=== PATIENT | female | born 1950 | race Hispanic/Latino ===

== ENCOUNTER 2022-01-27 10:43 | Inpatient (IN) | payer SELFPAY ==
[2022-01-27 11:14] LABS: Absolute Lymphocytes (CBC) 0.8 K/uL (0.7-4.9); Hematocrit 44.1 % (36.0-45.0); Lymphocytes % 6.8 % (15.3-44.8); RBC Red Blood Cell Count 4.87 M/uL (3.86-4.86)
[2022-01-27 11:27] LABS: C-Reactive Protein 13.6 mg/L (<3.00); Uric Acid 5.3 mg/dL (2.6-6.0)
[2022-01-27 11:28] LABS: Potassium 4.3 mmol/L (3.5-5.1)
[2022-01-27] MEDS ORDERED: LIDOCAINE 1% MPF 30 ML VIAL ONE (11:42)
--- NOTE | 2022-01-27 11:47 | RAD REPORT ---
EXAM DESCRIPTION: RAD - Ankle Left 3 View - 01/27/2022 11:23 am CLINICAL HISTORY: Pain;Swelling COMPARISON: None. FINDINGS: No fracture, dislocation or periosteal reaction. No joint effusion seen. No joint space na rrowing. Minimal plantar spur is present. Soft tissue swelling surrounds the ankle with plantar soft tissues also appearing slightly edematous. No air or foreign body in the soft tissues. IMPRESSION: Soft tissue swelling with no left ankle fracture.
[2022-01-27] MEDS ORDERED: MORPHINE 4 MG/ML SYR ONE (12:02)
[2022-01-27] MEDS ORDERED: ONDANSETRON 4 MG/2 ML VIAL ONE ×2 (12:02→16:42)
--- NOTE | 2022-01-27 12:20 | RAD REPORT ---
EXAM DESCRIPTION: US - Extremity Venous Uni Ltd - 01/27/2022 11:55 am CLINICAL HISTORY: Pain;Swelling COMPARISON: None. TECHNIQUE: Real-time sonographic evaluation of the left lower extremity deep venous system was perfo rmed. FINDINGS: Normal compressibility, flow augmentation, phasic flow and spontaneous flow are identified in the left lower extremity common femoral, superficial femoral, popliteal and posterior tibial vein s. No intraluminal filling defects seen. IMPRESSION: No DVT in the left lower extremity.
--- NOTE | 2022-01-27 12:20 | RAD REPORT ---
EXAM DESCRIPTION: US - Lower Extremity Artery Uni Ltd - 01/27/2022 11:55 am CLINICAL HISTORY: LLE COMPARISON: No comparisons TECHNIQUE: Doppler evaluation of the left leg arterial tree performed. Waveforms and velocity values were obtained along with visual inspection. FINDINGS: Triphasic and biphasic waveforms were seen along the length of the left lower extremity. N o occlusion or focal flow restricting lesion. No significant degree of wall atherosclerotic change se en. No suspicious velocity or waveform finding. IMPRESSION: Left lower extremity arterial examination shows no significant or suspicious finding.
[2022-01-27 13:08] LABS: Body Fluid WBC 40969 /mm^3
[2022-01-27 13:22] LABS: Appearance TURBID (CLEAR); Body Fluid Source SYNOVIAL; Color of fluid Yellow (COLORLESS)
[2022-01-27 13:42] LABS: Blood Morphology Comment NOT SEEN (NOT SEEN); Platelet Estimate ADEQ
[2022-01-27] MEDS ORDERED: NA CHLORIDE 0.9% 250 ML ONE (13:50)
[2022-01-27] MEDS ORDERED: Levofloxacin500mg IV 500 MG/100 ML BAG IV ONE (13:50)
[2022-01-27] MEDS ORDERED: VANCOMYCIN 1 GM/VIAL ONE (13:50)
--- NOTE | 2022-01-27 14:05 | EDPHYS ---
Physician Documentation [facility] Name: Martha Wan Age: 71 yrs Sex: Female : 1950 Arrival Date: 01/27/2022 Time: 10:44 Bed 6 Private MD: ED Physician Luis Fernando De La Torre HPI: 01/27 10:59 This 71 yrs old Female presents to ER via Ambulatory with complaints of Ankle rn Swelling - left. 10:59 The patient presents with pain, that is acute, swelling. The complaints affect the left rn ankle. Onset: The symptoms/episode began/occurred this morning. Context: The problem was sustained at home, resulted from an unknown cause, The patient can partially bear weight on the affected extremity. Associated signs and symptoms: Pertinent positives: swelling, Pertinent negatives: calf tenderness, fever, warmth, weakness. Modifying factors: The symptoms are alleviated by elevation of extremity, the symptoms are aggravated by weight bearing, movement. Severity of symptoms: At their worst the symptoms were moderate, in the emergency department the symptoms are unchanged. The patient has not experienced similar symptoms in the past. The patient has not recently seen a physician. Pt reports left ankle swelling, began this morning, pain woke her up from sleep, no known injury. No known hx of gout or other arthritis. No fever/chills. No knee/calf pain or tenderness. Historical: - Allergies: 10:57 PENICILLINS; ss 10:57 Possibly other antibiotics; ss 10:52 PENICILLINS; thomas 10:52 Aspirin; thomas - PMHx: 10:57 Hypertensive disorder; Angina pectoris; ss - Immunization history:: Client reports receiving the 2nd dose of the Covid vaccine, Adult Immunizations up to date. - Social history:: Smoking status: Patient/guardian denies using tobacco, the patient reports quitting approximately 16 years ago, Smoking status: Patient/guardian denies using tobacco, the patient reports quitting approximately 16 years ago. - Family history:: not pertinent. - Hospitalizations: : No recent hospitalization is reported. ROS: 10:59 Constitutional: Negative for fever, chills, and weight loss, Cardiovascular: Negative rn for chest pain, palpitations, and edema, Respiratory: Negative for shortness of breath, cough, wheezing, and pleuritic chest pain, Abdomen/GI: Negative for abdominal pain, nausea, vomiting, diarrhea, and constipation, Back: Negative for injury and pain, MS/Extremity: Neg for injury, + left ankle swelling and pain Skin: Negative for injury, rash, and discoloration, Neuro: Negative for headache, weakness, numbness, tingling, and seizure. Exam: 10:59 Constitutional: This is a well developed, well nourished patient who is awake, alert, rn and in no acute distress. Head/Face: Normocephalic, atraumatic. Cardiovascular: Regular rate and rhythm. No pulse deficits. Respiratory: No increased work of breathing, no retractions or nasal flaring. Abdomen/GI: Soft, non-tender Skin: Warm, dry, no cyanosis MS/ Extremity: Pulses equal, no cyanosis. Neurovascular intact. Equal circumference. + swelling at left ankle without warmth or erythema. + covered in ointment. Neuro: Awake and alert, GCS 15 Vital Signs: 10:55 BP 165 / 115; Pulse 89; Resp 16; Temp 97.8(TE); Pulse Ox 98% on R/A; Weight 77.11 kg; ss Height 4 ft. 11 in. (149.86 cm); 12:35 BP 132 / 97; Pulse 92; Resp 18; Pulse Ox 92% on R/A; thomas 13:37 BP 137 / 98; Pulse 101; Resp 20; Pulse Ox 91% on R/A; thomas 14:55 BP 140 / 88; Pulse 95; Resp 20; Pulse Ox 94% on R/A; jg9 10:55 Body Mass Index 34.34 (77.11 kg, 149.86 cm) Procedures: 12:17 Joint Treatment: Aspiration of left ankle using 21 g needle. Removed yellow fluid, rn Specimen sent to lab. Dressed with band aid, Patient tolerated well. of left medial ankle Anesthesia with lidocaine 1% without epi, 3 cc yellow synovial fluid removed, tolerated well, using ultrasound guidance. . MDM: 10:46 Patient medically screened. rn 13:35 ED course: Consulted with Dr. Zuniga, my concern is possible septic [place] [address] WBC with 88% neutrophils, and 4+ WBC, will come and eval patient. . 14:02 Differential diagnosis: sprain, arthritis, gout, septic arthritis. Data reviewed: vital rn signs, nurses notes, lab test result(s), radiologic studies, plain films, ultrasound, and as a result, I will admit patient. Counseling: I had a detailed discussion with the patient and/or guardian regarding: the historical points, exam findings, and any diagnostic results supporting the discharge/admit diagnosis, lab results, radiology results, the need for further work-up and treatment in the hospital. Response to treatment: the patient's symptoms have mildly improved after treatment, and as a result, I will admit patient. Admission orders: after a detailed discussion of the patient's condition and case, the admit orders are written by me. ED course: Dr. Zuniga is going to take her to OR for washout, septic arthritis, will admit to hospitalist. . 01/27 10:58 Order name: CBC with Diff; Complete Time: 14:14 rn 01/27 10:58 Order name: Basic Metabolic Panel; Complete Time: 11:31 rn 01/27 10:58 Order name: Uric Acid; Complete Time: 11:31 rn 01/27 10:58 Order name: Procalcitonin; Complete Time: 11:53 rn 01/27 10:58 Order name: C-Reactive Protein; Complete Time: 11:31 rn 01/27 10:58 Order name: ESR; Complete Time: 14:14 rn 01/27 11:18 Order name: Manual Differential; Complete Time: 14:14 EDTN 01/27 12:17 Order name: Fluid Cell Count,Body; Complete Time: 13:49 rn 01/27 12:17 Order name: Fluid Crystals; Complete Time: 12:54 rn 01/27 12:17 Order name: Body Fluid Culture; Complete Time: 12:54 rn 01/27 13:38 Order name: Blood Culture Adult (2) rn 01/27 14:19 Order name: SARS-COV-2 RT PCR (Document "Date of Onset" if Symptomatic) eb 01/27 14:20 Order name: Basic Metabolic Panel EDMS 01/27 14:20 Order name: CBC with Automated Diff EDTN 01/27 10:58 Order name: XRAY Ankle LEFT 3 view; Complete Time: 11:53 rn 01/27 10:58 Order name: Extremity Venous Uni Ltd US; Complete Time: 12:27 rn 01/27 10:58 Order name: Lower Extremity Artery Uni Ltd US; Complete Time: 12:27 rn 01/27 10:58 Order name: IV Start; Complete Time: 11:25 rn 01/27 13:49 Order name: Consult Orthopedics-Alfredo Zuniga MD (ORTHOPEDICS); Complete Time: rn 13:51 01/27 13:50 Order name: XRAY Chest (1 view) rn 01/27 14:17 Order name: CONS Physician Consult EDMS 01/27 14:20 Order name: NPO EDMS 01/27 15:16 Order name: RAD EDMS Administered Medications: 11:50 Drug: morphine 4 mg Route: IVP; Site: right antecubital; thomas 12:18 Follow up: Response: No adverse reaction thomas 11:50 Drug: Zofran (Ondansetron) 4 mg Route: IVP; Site: right antecubital; thomas 12:18 Follow up: Response: No adverse reaction thomas Disposition Summary: 01/27/22 14:05 Hospitalization Ordered Hospitalization Status: Inpatient Admission rn Provider: Ruy Mars rn Location: Telemetry/MedSurg (Inpatient) rn Condition: Stable rn Problem: new rn Symptoms: have improved rn Bed/Room Type: Standard rn Room Assignment: rn Diagnosis - Septic arthritis, left ankle rn Forms: - Medication Reconciliation Form rn - SBAR form rn Signatures: Dispatcher [employer] [facility] Luis Fernando De La Torre MD MD rn Smirch, Shelby, RN RN Natasha Campos RN RN
--- NOTE | 2022-01-27 14:05 | ER ---
Nurse's Notes [facility] Name: Martha Wan Age: 71 yrs Sex: Female : 1950 Arrival Date: 01/27/2022 Time: 10:44 Bed 6 Private MD: Diagnosis: Septic arthritis, left ankle Presentation: 01/27 10:55 Chief complaint: Patient states: L ankle swelling and pain that patient noticed when ss she woke up this morning. Denies injury. Coronavirus screen: Client denies travel out of the [place] in the last 14 days. Ebola Screen: Patient denies exposure to infectious person. Patient denies travel to an Ebola-affected area in the 21 days before illness onset. Initial Sepsis Screen: Does the patient meet any 2 criteria? No. Patient's initial sepsis screen is negative. Does the patient have a suspected source of infection? No. Patient's initial sepsis screen is negative. Risk Assessment: Do you want to hurt yourself or someone else? Patient reports no desire to harm self or others. Onset of symptoms is unknown. 10:55 Method Of Arrival: Ambulatory ss 10:55 Acuity: VERONICA 3 ss Historical: - Allergies: 10:57 PENICILLINS; ss 10:57 Possibly other antibiotics; ss 10:52 PENICILLINS; thomas 10:52 Aspirin; thomas - PMHx: 10:57 Hypertensive disorder; Angina pectoris; ss - Immunization history:: Client reports receiving the 2nd dose of the Covid vaccine, Adult Immunizations up to date. - Social history:: Smoking status: Patient/guardian denies using tobacco, the patient reports quitting approximately 16 years ago, Smoking status: Patient/guardian denies using tobacco, the patient reports quitting approximately 16 years ago. - Family history:: not pertinent. - Hospitalizations: : No recent hospitalization is reported. Screenin:00 Abuse screen: Denies threats or abuse. Denies injuries from another. Nutritional jg9 screening: No deficits noted. Tuberculosis screening: No symptoms or risk factors identified. Fall Risk None identified. Assessment: 10:51 General: Appears in no apparent distress. Behavior is calm, cooperative. Pain: thomas Complains of pain in left lateral ankle. Musculoskeletal: Swelling present in left lateral ankle Reports Pain is 7 out of 10 on a pain scale. 15:14 Reassessment: Patient taken to surgery. jg9 Vital Signs: 10:55 BP 165 / 115; Pulse 89; Resp 16; Temp 97.8(TE); Pulse Ox 98% on R/A; Weight 77.11 kg; ss Height 4 ft. 11 in. (149.86 cm); 12:35 BP 132 / 97; Pulse 92; Resp 18; Pulse Ox 92% on R/A; thomas 13:37 BP 137 / 98; Pulse 101; Resp 20; Pulse Ox 91% on R/A; thomas 14:55 BP 140 / 88; Pulse 95; Resp 20; Pulse Ox 94% on R/A; jg9 10:55 Body Mass Index 34.34 (77.11 kg, 149.86 cm) ED Course: 10:44 Patient arrived in ED. am2 10:46 Luis Fernando De La Torre MD is Attending Physician. rn 10:48 Bea Hall RN is Primary Nurse. jg9 10:57 Triage completed. ss 10:57 Arm band placed on right wrist. ss 11:25 XRAY Ankle LEFT 3 view In Process Unspecified. EDMS 11:25 Manual Differential Sent. thomas 11:25 ESR Sent. thomas 11:25 C-Reactive Protein Sent. thomas 11:25 Procalcitonin Sent. thomas 11:25 Uric Acid Sent. thomas 11:25 Basic Metabolic Panel Sent. thomas 11:56 Extremity Venous Uni Ltd US In Process Unspecified. EDMS 11:56 Lower Extremity Artery Uni Ltd US In Process Unspecified. EDMS 14:00 Patient has correct armband on for positive identification. Bed in low position. Call jg9 light in reach. Side rails up X 1. 14:03 Andre Mars MD is Hospitalizing Provider. rn 14:04 Ruy Mars MD is Hospitalizing Provider. rn 15:16 No provider procedures requiring assistance completed. jg9 15:16 Patient admitted, IV remains in place. jg9 Administered Medications: 11:50 Drug: morphine 4 mg Route: IVP; Site: right antecubital; thomas 12:18 Follow up: Response: No adverse reaction thomas 11:50 Drug: Zofran (Ondansetron) 4 mg Route: IVP; Site: right antecubital; thomas 12:18 Follow up: Response: No adverse reaction thomas Outcome: 14:05 Decision to Hospitalize by Provider. rn 15:16 Condition: stable jg9 15:20 Patient left the ED. eb Signatures: Dispatcher [employer] EDMS Luis Fernando De La Torre MD MD rn Smirch, Shelby, RN RN ss Moreno, Amanda am2 Botello, Elizabeth eb Gilmore, Jennifer, RN RN jg9 Natasha Campos RN RN thomas Corrections: (The following items were deleted from the chart) 15:17 15:16 Discharged to surgery j9 jg9
--- NOTE | 2022-01-27 14:23 | P.HP ---
Certification for Inpatient With expected LOS: <2 Midnights Patient will require the following post-hospital care: None Practitioner: I am a practitioner with admitting privileges, knowledge of patient current condition, hospital course, and medical plan of care. Services: Services provided to patient in accordance with Admission requirements found in Title 42 Section 412.3 of the Code of Federal Regulations Patient History Date of Service: 01/27/22 Reason for admission: Selling of left ankle History of Present Illness: Swollen for 2 days Dx with septic arthritis in ER patient is visiting her daughter from the [place] with acute onset of pain in the left ankle there is no history of any injury other medical issues apart from a history of heavy tobacco abuse Allergies aspirin Allergy (Verified 01/27/22 15:27) Anaphylaxis Penicillins Allergy (Verified 01/27/22 15:27) Anaphylaxis - Past Medical/Surgical History -: HTN -: CAD? - Social History Smoking Status: Former smoker Review of Systems Musculoskeletal: Other (Left ankle discomfort s/p IND) Physical Examination - Vital Signs Temperature: 97.8 F Blood Pressure: 137/98 Pulse: 101 Respirations: 20 Pulse Ox (%): 92 (ra) - Studies Laboratory Data (last 24 hrs) 01/27/22 11:05: Sodium 140, Potassium 4.3, BUN 19 H, Creatinine 0.81, Glucose 125 H, Uric Acid 5.3 01/27/22 11:05: WBC 11.4 H, Hgb 14.8, Hct 44.1, Plt Count 340 Microbiology Data (last 24 hrs): 01/27/22 12:20 Body Fluid - Left Ankle Gram Stain - Final Assessment and Plan - Problems (Diagnosis) (1) Septic arthritis of ankle Current Visit: Yes Status: Acute (2) Atrial flutter Current Visit: Yes Status: Acute Plan: Poss H?x of Cflutter. Hepariinize and consult cardiology (3) COPD (chronic obstructive pulmonary disease) Current Visit: Yes Status: Acute Plan: C SOBOE former heavy smoker - Plan Seen by Dr. Ann/p I&D start patient on IV Levaquin and vancomycin severely allergic to aspirin and penicillin resulting in anaphylactic shock White count is mildly elevated white count is mildly elevated ankle aspiration showed effusion Albuterol prn for poss COPD Discharge Plan: Home Plan to discharge in: 48 Hours - Advance Directives Does patient have a Living Will: No Does patient have a Durable POA for Healthcare: No
[2022-01-27] MEDS: Levofloxacin 750mg IV 750 MG/150 ML BAG IV SCH (15:00)
[2022-01-27] MEDS: Ringers Lactate 1,000 ML IV SCH (15:00)
[2022-01-27] MEDS ORDERED: VANCOMYCIN 2 GM in NA CHLORIDE 0.9% 500 ML IVPB ONE (15:00)
[2022-01-27] MEDS: Ringers Lactate 1,000 ML IV ONE ×2 (15:00→15:06)
--- NOTE | 2022-01-27 15:16 | RAD REPORT ---
EXAM DESCRIPTION: RAD - Chest Single View - 01/27/2022 2:52 pm CLINICAL HISTORY: DYSPNEA COMPARISON: None available TECHNIQUE: AP portable chest image was obtained 01/27/2022 2:52 pm . FINDINGS: Lung volumes are low. No mass or consolidations seen. Interstitial markings are prominent. Cardiomegaly is present with mild vascular engorgement. No measurable pleural effusion and no pneumo thorax. No acute bony abnormality seen. No acute aortic findings suspected. IMPRESSION: Mild CHF/volume overload pattern.
[2022-01-27] MEDS ORDERED: SUCCINYLCHOLINE 20 MG/ML (10 ML) IV ONE (15:32)
[2022-01-27] MEDS ORDERED: FENTANYL CITR 100 MCG/2 ML ONE ×2 (15:35→17:22)
[2022-01-27] MEDS ORDERED: propofoL 200 MG/20 ML VIAL IV ONE (15:35)
--- NOTE | 2022-01-27 16:20 | CON ---
Date of Consultation: 01/27/2022 History Of Present Illness: This is my first time seeing this patient to my knowledge. She is a 71- year-old female, who has a history of hypertension as well as perhaps some angina. I am called to se nicci sykes for significant pain related to the left ankle. Pertinent history includes that she was comple tely asymptomatic, playing with children yesterday and then woke up this morning at 7 o'clock and sta rted having some ankle pain. Then as the morning progressed, she became worse and worse where she co uld not walk in her to even move or manipulate her ankle. [facility] In the emergency department, x-rays were taken, which did not demonstrate any fractures o r dislocations and she does have significant amount of swelling of the ankle, which was aspirated by the ER physician. This aspirate reveals no crystals as well as a Gram stain of 4+ white blood cells as well as a white blood cell count of 44. Assessment: This is a 71-year-old female, now with pain in her left ankle. Obvious inciting event i s not present. This is somewhat concerning for septic arthritis with the ankle as there is no sign o f trauma and the patient's family denied trauma. She has also had rapid worsening. She has a high s edimentation rate and CRP as well. Plan: At this time, I spoke with the patient's family regarding this with recommendation for IV anti biotics, admission as well as open irrigation of the left ankle. The family member wants to speak wi th another family member and thus not made their final decision. They are told of the possibility of persistent septic arthritis, possible osteomyelitis, and other problems, which could be associated w ith untreated septic arthritis. They state they understand things as presented. We will await their gabriel GREENBERG Voice ID: [id number] Report ID: [id number]
--- NOTE | 2022-01-27 16:26 | P.BOP ---
Preoperative diagnosis: probable left ankle sepic arthritis Postoperative diagnosis: same Estimated blood loss: 10ccs Anesthesia: General Complications: None Transferred to: Recovery Room Condition: Good
[2022-01-27] MEDS ORDERED: ALBUTEROL 2.5 MG/3 ML NEB SOL ONE (16:37)
[2022-01-27] MEDS: MORPHINE 4 MG/ML SYR ONE ×2 (16:40→16:45)
[2022-01-27] MEDS ORDERED: Ringers Lactate 1,000 ML IV ONE (17:40)
--- NOTE | 2022-01-27 17:44 | OP ---
Date of Procedure: 01/27/2022 Surgeon: Alfredo Zuniga MD Preoperative Diagnosis: Left ankle probable septic arthritis. Postoperative Diagnosis: Left ankle probable septic arthritis. Procedure: Left ankle open irrigation and debridement. Estimated Blood Loss: Less than 10 cc. Complications: There were no complications. Pathology Specimen: No pathology specimen sent. Indications For Operation: Ms. Hdez is a 71-year-old female, who unfortunately about 7 this morning was awakened, she had very mild pain related to her ankle. Over the course of the morning, her ankle started swelling more and more pain became more severe until she could not walk and basically could not move her foot or ankle. She was taken to the emergency room and evaluated there with x-rays as well as a Doppler ultrasound as well as an aspiration and chemistries. The white blood cell count was found to be 11.4 with a left shift, also found to have a sed rate of only 6; however, there is a C-reactive protein of 13.6. Procalcitonin was normal. The aspiration, however, revealed yellow turbid fluid with a white blood cell count of 40,969 with the significant preponderance of neutrophils. On my physical examination of her, gentle motion of the ankle did not cause much pain, but she had morphine and had a previous aspiration. X-rays were normal. Talking with the family as well as the ER staff, she was in very significant pain when she arrived. Based on history and physical examination and laboratory findings, I believe there was a fairly good chance that she is suffering from septic arthritis of the ankle, although this is rare. This should be treated immediately and risks, benefits, and alternatives to irrigation and debridement and other indicated procedures have been discussed with the patient and her family, which we agreed to proceed. Description Of Procedure: The patient was taken to the operating room and placed in the supine position. General anesthesia was obtained by staff. Following this, a well-padded tourniquet placed on superior left thigh. Left lower extremity was then prepped and draped in the usual fashion for the procedure. Following this, an incision was made along the medial border of the medial malleolus. There was quite a bit of adipose tissue, which was carefully divided with care being taken to avoid any trauma to the saphenous vein. The anterior surface of the tibia was palpated as well as the medial malleolus at the junction between the tibia and medial malleolus. An incision was made at that corner, which proceeds down approximately 1[address] the malleolus, which allows for a flap, which was tagged with 0 Vicryl and this was further exploited. A velazquez of fluid appearing to be definitely turbid and kashif colored seen. It is thin in appearance, does not appear to be thick purulence as of yet; however, had the appearance of an infected fluid. The fluid was suctioned and the foot was brought through range of motion with more fluid coming to the incision. After this, retaction and exposure was used and 2 L were washed in and out with active motion including plantar flexion and dorsiflexion. As this occurs, this was done until the fluid runs completely clear at 2 L. After this, 2-0 nylon sutures were used to close the skin; however, the small incision in the capsule remained open. She was then placed in a very well-padded sterile dressing and a posterior splint, awakened, and taken to recovery room in good condition. There were no complications. /NANCY Voice ID: [id number] Report ID: [id number] SKY
[2022-01-27] MEDS ORDERED: ONDANSETRON 4 MG/2 ML VIAL IV PRN (17:46)
[2022-01-27] MEDS ORDERED: MORPHINE 4 MG/ML SYR IV PRN (17:46)
[2022-01-27] MEDS ORDERED: ALBUTEROL 2.5 MG/3 ML NEB SOL NEB PRN (17:49)
[2022-01-27] MEDS ORDERED: HEPARIN/D5W 25,000 UNIT/500 ML BAG IV SCH (18:00)
[2022-01-27] MEDS ORDERED: VANCOMYCIN 1 GM in NA CHLORIDE 0.9% 250 ML IVPB ONE (21:00)
[2022-01-27] MEDS: HYDROCODONE/APAP 5/325 MG TAB PO PRN (21:37)
[2022-01-27 21:45] VITALS: BMI 34.6
[2022-01-27 22:10] LABS: Protime INR 1.23
[2022-01-28] MEDS: Ringers Lactate 1,000 ML IV SCH (03:12)
[2022-01-28 03:31] LABS: Absolute Lymphocytes (CBC) 1.1 K/uL (0.7-4.9); Hematocrit 39.2 % (36.0-45.0); Lymphocytes % 11.2 % (15.3-44.8); MPV 8.1 fL (7.6-11.3); RBC Red Blood Cell Count 4.28 M/uL (3.86-4.86)
[2022-01-28 04:17] LABS: Potassium 4.1 mmol/L (3.5-5.1); Thyroid Stimulating Hormone 2.05 uIU/mL (0.360-3.740); Uric Acid 4.9 mg/dL (2.6-6.0)
[2022-01-28 04:39] LABS: T3 Free 1.88 pg/mL (2.18-3.98)
--- NOTE | 2022-01-28 09:36 | PN ---
Date of Progress Note: 01/28/2022 The patient is seen today. Her white blood cell count is now down to 9.4. Her pain is greatly decre ased with active motion of the toes. She is neurovascularly intact. Her dressings were clean, dry, and intact. The speak with assistance with her daughter. At this time, I think she can be mobilized as tolerated in the splint and most likely tomorrow, we will dress the ankle and allow her weightbea ring in a boot. Her stitches will need to be removed in 2 weeks and will probably still be monitored in the hospital for atrial fibrillation as well as clinical monitoring of her ankles. All of her qu estions as well as her family have been answered. /NANCY Voice ID: [id number] Report ID: [id number]
--- NOTE | 2022-01-28 10:34 | P.PN ---
Subjective Date of Service: 01/28/22 Chief Complaint: Selling of left ankle Subjective: Improving (Patient is improving pain has improved daughter at the bedside 3 of atrial fibrillation taking Plavix) Review of Systems 10-point ROS is otherwise unremarkable Physical Examination - Vital Signs Temperature: 96.4 F Blood Pressure: 116/58 Pulse: 77 Respirations: 18 Pulse Ox (%): 97 - Physical Exam General: Alert, In no apparent distress, Oriented x3 - Studies Laboratory Data (last 24 hrs) 01/27/22 11:05: Sodium 140, Potassium 4.3, BUN 19 H, Creatinine 0.81, Glucose 125 H, Uric Acid 5.3 01/27/22 11:05: WBC 11.4 H, Hgb 14.8, Hct 44.1, Plt Count 340 Microbiology Data (last 24 hrs): 01/27/22 12:20 Body Fluid - Left Ankle Gram Stain - Final Assessment And Plan - Current Problems (Diagnosis) (1) Septic arthritis of ankle Current Visit: Yes Status: Acute (2) Atrial flutter Current Visit: Yes Status: Acute Plan: Poss H?x of Cflutter. Hepariinize and consult cardiology (3) COPD (chronic obstructive pulmonary disease) Current Visit: Yes Status: Acute Plan: C SOBOE former heavy smoker - Plan Patient is doing better pain has improved chest pending continue with IV antibiotics ID consult patient has chronic A. fib was prescribed Plavix and cardiology consultation no change in treatment patient has normal normal thyroid function rate is controlled and is to Lovenox the echocardiogram uric acid is normal vital signs stable
[2022-01-28] MEDS: ENOXAPARIN 80 MG/0.8 ML SQ SCH ×2 (11:16→22:39)
[2022-01-28] MEDS ORDERED: VANCOMYCIN 1.5 GM in NA CHLORIDE 0.9% 500 ML IVPB SCH (15:00)
[2022-01-28] MEDS: Levofloxacin 750mg IV 750 MG/150 ML BAG IV SCH (16:11)
[2022-01-28] MEDS: HYDROCODONE/APAP 5/325 MG TAB PO PRN ×2 (18:00→22:40)
--- NOTE | 2022-01-28 19:15 | CON ---
Date of Consultation: 01/28/2022 Reason For Consultation: Atrial fibrillation/flutter. History Of Present Illness: This is a 71-year-old female, who was admitted with a septic ankle, had surgical intervention and on IV antibiotics, found to be in atrial flutter, hence I was consulted. A ccording to her, there is no history of cardiac disease in the past. She only has history of hyperte nsion. Denies having any palpitations or chest pain or shortness of breath. Past Medical History: Hypertension. Medications: Refer to reconciliation sheet for detailed list. Allergies: ASPIRIN AND PENICILLIN. Family History: No premature coronary artery disease or cancer. Social History: Does not smoke or drink. Does not use any drugs. Review of Systems: All systems reviewed and they were negative except for what mentioned in HPI. Physical Examination: Vital Signs: Reviewed. Head and Neck: Pupils are equal, reactive to light. Intact eye movements. No JVD. No cervical lym phadenopathy. Neck: Supple. Thyroid is not enlarged. Lungs: Clear to auscultation bilaterally. No rhonchi, wheezing, or crackles. Heart: Irregularly regular. Rate is acceptable in the 70s. No other extra sounds. Abdomen: Soft, nontender. Bowel sounds positive. No organomegaly. No masses or hernia. No rigidi ty or rebound. Extremities: No edema, clubbing, or cyanosis. Intact pulses. Skin: No rash noted. Neurologic: Alert, awake, oriented x3. No acute focal deficits appreciated. Investigations: Hemoglobin is 13.2 and creatinine 0.72. Assessment And Recommendations: Atrial fibrillation/flutter. I recommend to start on sotalol 80 mg twice a day. Monitor EKG daily while on it after the third dose and agree with anticoagulation. She can be placed on Eliquis 5 mg twice a day for stroke prevention and please obtain echocardiogram. Thank you for the consult. /BOBBYL Voice ID: [id number] Report ID: [id number]
[2022-01-28] MEDS: VANCOMYCIN 1.5 GM in NA CHLORIDE 0.9% 500 ML IVPB SCH (22:39)
[2022-01-29 04:51] LABS: MPV 8.2 fL (7.6-11.3)
[2022-01-29] MEDS: ENOXAPARIN 80 MG/0.8 ML SQ SCH ×2 (09:13→21:02)
--- NOTE | 2022-01-29 11:40 | ECHO ---
HEIGHT: 4 ft 11 in WEIGHT: 171 lb 4.8 oz DATE OF STUDY: 01/29/[address]: Ruy Mars MD 2-DIMENSIONAL: YES M.MODE: YES DOPPLER: YES COLOR FLOW: YES TDS: NO PORTABLE: NO DEFINITY: NO BUBBLE STUDY: NO DIAGNOSIS: ATRIAL FIBRILLATION CARDIAC HISTORY: CATHERIZATION: SURGERY: PROSTHETIC VALVE: PACEMAKER: MEASUREMENTS (cm) DIASTOLIC (NORMALS) SYSTOLIC (NORMALS) IVSd 0.9 (0.6-1.2) LA Diam 3.7 (1.9-4.0) LVEF 69% LVIDd 4.4 (3.5-5.7) LVIDs 2.7 (2.0-3.5) %FS 39% LVPWd 1.0 (0.6-1.2) Ao Diam 2.8 (2.0-3.7) 2 DIMENSIONAL ASSESSMENT: RIGHT ATRIUM: NORMAL LEFT ATRIUM: NORMAL RIGHT VENTRICLE: NORMAL LEFT VENTRICLE: NORMAL TRICUSPID VALVE: NORMAL MITRAL VALVE: NORMAL PULMONIC VALVE: NORMAL AORTIC VALVE: NORMAL PERICARDIAL EFFUSION: NONE AORTIC ROOT: NORMAL LEFT VENTRICULAR WALL MOTION: NORMAL. DOPPLER/COLOR FLOW: NORMAL. COMMENTS: ATRIAL FIBRILLATION. NORMAL LEFT VENTRICULAR SIZE AND FUNCTION. NO THROMBUS. TECHNOLOGIST: MANDY EDWARDS
--- NOTE | 2022-01-29 15:17 | P.CNS ---
Date of Consult: 01/29/22 Chief Complaint: Selling of left ankle History of Present Illness: The patient is a 71-year-old female with a past medical history of hypertension who presented to the emergency department secondary to severe sudden onset left ankle pain, erythema, and swelling. Per patient and daughter who is at bedside at the bedside, the patient woke up in the middle of the night on Saturday with pain in her ankle. When she woke up the following morning, she noticed the pain in her ankle continued to worsen and she began limping. The daughter then brought the patient to the emergency room. Joint fluid analysis showed 40,969 WBCs which were predominantly neutrophils. However Gram stain/culture has been negative. Patient was taken to the OR on 01/27 for left ankle debridement, per operative note infected looking fluid was aspirated. Patient's inflammatory markers mildly elevated. WBC slightly elevated as well, procalcitonin negative. Patient currently denies nausea/vomiting/diarrhea/shortness breath/chest pain. Allergies aspirin Allergy (Verified 01/27/22 15:27) Anaphylaxis Penicillins Allergy (Verified 01/27/22 15:27) Anaphylaxis Home Medications: Amiodarone HCl [Cordarone Tab] 200 mg PO DAILY 01/27/22 Carvedilol [Coreg] 12.5 mg PO DAILY 01/27/22 Clopidogrel Bisulfate [Plavix] 75 mg PO DAILY 01/27/22 Donepezil HCl [Aricept] 10 mg PO BEDTIME 01/27/22 Irbesartan/Hydrochlorothiazide [Avalide 300-12.5 mg Tablet] 1 each PO DAILY 01/27/22 - Past Medical/Surgical History Diabetic: No -: HTN -: CAD? - Social History Alcohol use: No CD- Drugs: No Caffeine use: No Place of Residence: Home Review of Systems 10-point ROS is otherwise unremarkable Physical Examination Temp Pulse Resp BP Pulse Ox 97 F 96 H 17 133/65 93 01/29/22 12:00 01/29/22 12:00 01/29/22 12:00 01/29/22 12:00 01/29/22 12:00 General: Alert, In no apparent distress HEENT: Atraumatic Neck: Supple Respiratory: Clear to auscultation bilaterally Cardiovascular: Irregular heart rate/rhythm Gastrointestinal: Normal bowel sounds, Soft and benign Integumentary: Other (Left ankle wrapped in postop dressing/Lei wrap) Conclusions/Impression: Antibiotics: Vancomycin: urrent Septic arthritis Joint fluid analysis had 40,969 WBCs, predominantly neutrophils, as such have high clinical suspicion for septic arthritis. Gram stain/culture negative Patient was taken to the OR on 01/27 for debridement of ankle, per operative report infected fluid was drained Recommend treating with 14 days of IV vancomycin followed by oral Bactrim for 7 to 14 days Atrial fibrillation Newly diagnosed, recommend continuing anticoagulation therapy Hypertension Continue current medications Medical management per primary team Plan of care discussed with Dr. Greene Thank you for consultation
[2022-01-29] MEDS ORDERED: DONEPEZIL HCL 5 MG TAB PO SCH (21:00)
[2022-01-29] MEDS: VANCOMYCIN 1.5 GM in NA CHLORIDE 0.9% 500 ML IVPB SCH (21:02)
[2022-01-30 04:32] LABS: MPV 7.9 fL (7.6-11.3)
[2022-01-30 05:17] VITALS: O2SAT 97
[2022-01-30] MEDS: ENOXAPARIN 80 MG/0.8 ML SQ SCH (08:51)
[2022-01-30] MEDS ORDERED: AMIODARONE HCL 200 MG TAB PO SCH (09:00)
[2022-01-30] MEDS ORDERED: HYDROCHLOROTHIAZIDE PO SCH (09:00)
[2022-01-30] MEDS ORDERED: IRBESARTAN PO SCH (09:00)
[2022-01-30] MEDS ORDERED: CLOPIDOGREL 75 MG TABLET PO SCH (09:00)
[2022-01-30] MEDS ORDERED: VALSARTAN 160 MG TAB PO SCH (11:00)
[2022-01-30] MEDS ORDERED: hydroCHLOROthiazide 12.5 MG CAP PO SCH (11:00)
--- NOTE | 2022-01-30 11:18 | P.PN ---
Subjective Date of Service: 01/30/22 Chief Complaint: Selling of left ankle Patient seen and examined at bedside, denies any acute complaints/pain Review of Systems 10-point ROS is otherwise unremarkable Physical Examination - Vital Signs Temperature: 97.7 F Blood Pressure: 145/78 Pulse: 89 Respirations: 16 Pulse Ox (%): 95 - Studies Active Medications Hydrocodone Bitart/Acetaminophen (Hydrocodone/Apap 5/325 Mg Tab) 1 tab PO Q4HP PRN PRN Reason: Pain scale 5-7 (Moderate) Last Admin: 01/28/22 22:40 Dose: 1 tab Documented by: Albuterol Sulfate (Albuterol 2.5 Mg/3 Ml Neb Negrita) 2.5 mg NEB [id number] PRN PRN Reason: sob Amiodarone HCl (Amiodarone Hcl 200 Mg Tab) 200 mg PO DAILY [facility] Last Admin: 01/29/22 21:36 Dose: 200 mg Documented by: Carvedilol (Carvedilol 12.5 Mg Tab) 12.5 mg PO Q24H [facility] Last Admin: 01/29/22 21:36 Dose: 12.5 mg Documented by: Donepezil HCl (Donepezil Hcl 5 Mg Tab) 10 mg PO BEDTIME [facility] Last Admin: 01/29/22 21:36 Dose: 10 mg Documented by: Enoxaparin Sodium (Enoxaparin 80 Mg/0.8 Ml) 80 mg SQ Q12HR [facility] Last Admin: 01/30/22 08:51 Dose: 80 mg Documented by: Hydrochlorothiazide (Hydrochlorothiazide 12.5 Mg Cap) 12.5 mg PO DAILY [facility] Last Admin: 01/30/22 11:00 Dose: Not Given Documented by: Vancomycin HCl 1.5 gm/ Sodium (Chloride) 500 mls @ 250 mls/hr IVPB Q24H [facility] Last Admin: 01/29/22 21:02 Dose: 500 mls Documented by: Morphine Sulfate (Morphine 4 Mg/Ml Syr) 2 mg IV Q4HP PRN PRN Reason: Pain scale 5-7 (Moderate) Ondansetron HCl (Ondansetron 4 Mg/2 Ml Vial) 4 mg IV Q4HP PRN PRN Reason: NAUSEA / VOMITING Sodium Chloride (Flush Normal Saline 10 Ml) 10 ml IV BID [facility] Last Admin: 01/30/22 08:52 Dose: 10 ml Documented by: Valsartan (Valsartan 160 Mg Tab) 160 mg PO DAILY [facility] Microbiology Data (last 24 hrs): 01/27/22 12:20 Body Fluid - Left Ankle Gram Stain - Final 01/27/22 12:20 Body Fluid - Left Ankle Culture & Sensitivity - Final No growth. Assessment And Plan - Plan Physical Exam: General: Alert, In no apparent distress HEENT: Atraumatic Neck: Supple Respiratory: Clear to auscultation bilaterally Cardiovascular: Irregular heart rate/rhythm Gastrointestinal: Normal bowel sounds, Soft and benign Integumentary: Other (Left ankle wrapped in postop dressing/Lei wrap) Conclusions/Impression: Antibiotics: Vancomycin: urrent left ankle septic arthritis Joint fluid analysis had 40,969 WBCs, predominantly neutrophils, as such have high clinical suspicion for septic arthritis. Gram stain/culture negative Patient was taken to the OR on 01/27 for debridement of ankle, per operative report infected fluid was drained Recommend treating with 14 days of IV vancomycin followed by oral Bactrim for 7 to 14 days Atrial fibrillation Newly diagnosed, recommend continuing anticoagulation therapy Hypertension Continue current medications Medical management per primary team Plan of care discussed with Dr. Greene Thank you for consultation
[2022-01-30] MEDS ORDERED: carvediloL 12.5 MG TAB PO SCH (13:00)
[2022-01-30 14:25] VITALS: BP 143/80; TEMP 97.4
--- NOTE | 2022-01-30 15:25 | RAD REPORT ---
EXAM DESCRIPTION: RAD - Chest Single View - 01/30/2022 2:27 am CLINICAL HISTORY: PICC placement TECHNIQUE: Frontal view of the chest. COMPARISON: Correlation is made with report only from study dated 01/27/2022 FINDINGS: Lungs: Coarsened interstitial markings. Patchy bibasilar opacities. Pleural space: Unremarkable. No pneumothorax. Heart: The cardiac silhouette is enlarged, in part accentuated by portable technique. Mediastinum: Unremarkable. Bones/joints: Unremarkable. Vasculature: Thoracic aortic atherosclerosis. Tubes, lines and devices: Right upper extremity PICC tip projects over the proximal to mid superior vena cava. IMPRESSION: 1. Right upper extremity PICC tip projects over the proximal to mid superior vena cava . 2. Patchy bibasilar opacities (atelectasis and/or infiltrate). Electronically signed by: Alex Singh MD 01/30/2022 3:03 AM CDT Due to temporary technical issues with the PACS/Fluency reporting system, reports are being signed by the in house radiologists without review as a courtesy to insure prompt reporting. The interpreting radiologist is fully responsible for the content of the report.
[2022-01-31] MEDS ORDERED: VALSARTAN 160 MG TAB PO SCH (09:00)
--- NOTE | 2022-02-02 11:21 | PN ---
Date of Progress Note: 01/29/2022 The patient had come in with atrial fibrillation, was seen by Dr. Bauer, placed on sotalol, remained in atrial fibrillation. Echocardiogram was normal with a normal ejection fraction, no left atrial t hrombus. I think nevertheless she needs to be anticoagulated and we will see her in the office as an outpatient. Continue her present regimen otherwise. The patient is being followed by Lucina Dinh. She is on amiodarone now, Coreg, hydrochlorothiazide, and valsartan. I agree with her presen t regimen. She will need IV vancomycin for 14 days. Her initial diagnosis was septic arthritis. Ag azucena, she needs to be on amiodarone, needs to be anticoagulated and we will see her in the office soon . EMELYN/NANCY Voice ID: [id number] Report ID: [id number]
== END 2022-01-30 16:39 | disposition home or self-care (01) | DRG 549 ==
LOC: ER 10:43 → ERHOLD 14:14 → 2ND 16:50
PROVIDERS: ADMIT Internal Medicine Sleep Medicine; ATTEND Hospitalist
PROC: 0SJG3ZZ Inspection of Left Ankle Joint, Percutaneous Approach (ICD-10-PCS; 2022-01-27)
PROC: 3E1U38Z Irrigation of Joints using Irrigating Substance, Percutaneous Approach (ICD-10-PCS; principal; 2022-01-30)
PROC: 02HV33Z Insertion of Infusion Device into Superior Vena Cava, Percutaneous Approach (ICD-10-PCS; 2022-01-30)
DX: M00.9 Pyogenic arthritis, unspecified (principal); I48.92 Unspecified atrial flutter; I48.20 Chronic atrial fibrillation, unspecified; J44.9 Chronic obstructive pulmonary disease, unspecified; I10 Essential (primary) hypertension; Z88.6 Allergy status to analgesic agent; Z88.1 Allergy status to other antibiotic agents; Z79.02 Long term (current) use of antithrombotics/antiplatelets; Z79.899 Other long term (current) drug therapy; Z88.0 Allergy status to penicillin; Z87.891 Personal history of nicotine dependence; Z20.822 Contact with and (suspected) exposure to COVID-19
CPT/HCPCS: 36415; 36569; 71045; 80048; 80202; 82274; 82947; 84145; 84439; 84443; 84481; 84550; 84560; 85025; 85049; 85610; 85652; 85730; 86140; 87040; 87070; 87205; 89050; 89060; 93005; 93306; 93926; 93971; 96374; 96375; 99283; J0330; J1644; J2405; J2704; J3010; J3370; J7040; J7050; J7120; U0003

== ENCOUNTER 2022-04-13 11:48 | Inpatient (IN) | payer SELFPAY ==
[2022-04-13] MEDS ORDERED: NA CHLORIDE 0.9% 1,000 ML ONE (13:01)
--- NOTE | 2022-04-13 13:12 | RAD REPORT ---
EXAM DESCRIPTION: RAD - Chest Single View - 04/13/2022 1:05 pm CLINICAL HISTORY: FEVER COMPARISON: Chest Single View dated 01/30/2022; Chest Single View dated 01/27/2022hest Single View date d 01/30/2022; Chest Single View dated 01/27/2022 FINDINGS: Lines: The right-sided PICC has been removed. Lungs: Ill-defined opacities in the lower lungs bilaterally demonstrating mild improvement since 02/2022. Pleural: No significant pleural effusions or pneumothorax. Cardiac: Cardiomegaly Bones: No acute fractures. Other: IMPRESSION: Improved though not completely resolved airspace opacities in the lung bases that could represent pneumonia. Suspect vascular congestion as well.
[2022-04-13 13:21] LABS: Absolute Lymphocytes (CBC) 0.7 K/uL (0.7-4.9); Hematocrit 40.9 % (36.0-45.0); Lymphocytes % 3.2 % (15.3-44.8); MCV 87.5 fL (80-100); MPV 8.2 fL (7.6-11.3); RBC Red Blood Cell Count 4.67 M/uL (3.86-4.86)
[2022-04-13 13:32] LABS: ALT/SGPT 63 U/L (12-78); AST/SGOT 77 U/L (15-37); Alkaline Phosphatase 104 U/L (45-117); BUN Blood Urea Nitrogen 14 mg/dL (7-18); Bicarbonate 29 mmol/L (21-32); Bilirubin Direct 0.6 mg/dL (0-0.2); Creatine Phosphokinase 42 U/L (26-192); Glomerular Filtration Rate 67 ml/min (=/>90); Glucose Level 176 mg/dL (74-106); Lipase 64 U/L (73-393); Magnesium 1.5 mg/dL (1.8-2.4); Potassium 3.2 mmol/L (3.5-5.1); Protein, Total 7.4 g/dL (6.4-8.2); Sodium Level 132 mmol/L (136-145)
[2022-04-13 13:59] LABS: CKMB Creatine Kinase MB < 1.0 ng/mL (1.0-3.6)
[2022-04-13 14:01] LABS: Urine Blood Negative (Negative); Urine Glucose Negative (Negative); Urine Protein 2+ (Negative); Urine Specific Gravity >=1.030 (1.005-1.030); Urine pH 5.5 (5.0-7.0)
[2022-04-13 14:25] LABS: Urine RBC <5 /HPF (NONE SEEN)
[2022-04-13 14:26] LABS: Urine Bacteria <20 /HPF (<20); Urine Mucus 1+ /HPF (NONE SEEN)
[2022-04-13 14:52] LABS: Protime INR 1.35
[2022-04-13] MEDS ORDERED: POTASSIUM CL SA 10 MEQ TAB PO ONE ×2 (15:17→15:20)
[2022-04-13] MEDS ORDERED: Magnesium Sulfate 2gm IVPB 2 G/50 ML BAG IV ONE (15:18)
--- NOTE | 2022-04-13 15:41 | EDPHYS ---
Physician Documentation [facility] Name: Martha Wan Age: 71 yrs Sex: Female : 1950 Arrival Date: 04/13/2022 Time: 11:50 Bed 7 Private MD: ED Physician Olayinka Stark HPI: 04/13 15:02 This 71 yrs old Female presents to ER via Wheelchair with complaints of kb Weakness, Fever, High Blood Pressure. 15:38 The patient presents with generalized weakness. Onset: The symptoms/episode kb began/occurred 3 day(s) ago. Context: occurred at home, just prior to the episode the patient experienced no apparent symptoms. Modifying factors: The symptoms are alleviated by nothing, the symptoms are aggravated by nothing. Associated signs and symptoms: The patient has no apparent associated signs or symptoms. Severity of symptoms: At their worst the symptoms were moderate in the emergency department the symptoms are unchanged. Patient's baseline: Neuro: alert and fully oriented, Motor: no deficits, Ambulation: walks without assistance, Speech: normal. The patient has not experienced similar symptoms in the past. The patient has not recently seen a physician. Daughter reports pt has had weakness, fever, chills and decreased appetite for about 3 days. Today pt's bp was elevated 200/110 so she told her to come get checked out at the er. Denies cough, congestion, n/v/d. . Historical: - Allergies: 12:09 Aspirin; aa5 12:09 PENICILLINS; aa5 - Home Meds: 14:08 Plavix Oral 75 mg daily [Active]; Aricept Oral 10 mg nightly [Active]; Tessalon Perles bh1 Oral 100 mg every 6 hours [Active]; Coreg Oral 12.5 mg twice a day [Active]; Hydrochlorothiazide Oral 12.5 mg daily [Active]; IRBESARTAN 300 mg daily [Active]; Cordarone Oral 200 mg daily [Active]; - PMHx: 12:09 angina pectoris; Hypertensive disorder; aa5 - PSHx: 12:10 section; left leg; aa5 - Immunization history:: Adult Immunizations unknown. - Social history:: Smoking status: Patient denies any tobacco usage or history of. ROS: 15:34 Abdomen/GI: Negative for abdominal pain, nausea, vomiting, diarrhea, and constipation. kb 15:34 Constitutional: Positive for chills, fatigue, fever, malaise, poor PO intake. 15:34 Neuro: Positive for weakness. 15:34 All other systems are negative. Exam: 15:38 Constitutional: This is a well developed, well nourished patient who is awake, alert, kb and in no acute distress. Head/Face: Normocephalic, atraumatic. ENT: Moist Mucous membranes Cardiovascular: Regular rate and rhythm with a normal S1 and S2. No gallops, murmurs, or rubs. No pulse deficits. Respiratory: Respirations even and unlabored. No increased work of breathing. Talking in full sentences Abdomen/GI: Soft, non-tender. No distention Skin: Warm, dry with normal turgor. Normal color. MS/ Extremity: Pulses equal, no cyanosis. Neurovascular intact. Full, normal range of motion. Neuro: Awake and alert, GCS 15, oriented to person, place, time, and situation. Moves all extremities. Normal gait. Psych: Awake, alert, with orientation to person, place and time. Behavior, mood, and affect are within normal limits. Vital Signs: 12:06 BP 91 / 60; Pulse 67; Resp 24 S; Temp 99.0(O); Pulse Ox 92% on R/A; Weight 77.11 kg aa5 (R); Height 4 ft. 11 in. (149.86 cm) (R); 12:31 Pulse 77; Resp 26; Pulse Ox 88% on R/A; ld1 12:37 BP 95 / 50; Pulse 79; Resp 24; Pulse Ox 94% on 5 lpm NC; ld1 14:08 BP 94 / 46; Pulse 77; Resp 18; Pulse Ox 98% on 4 lpm NC; ld1 15:21 BP 100 / 61; Pulse 83; Resp 18; Pulse Ox 95% on 4 lpm NC; ld1 16:34 BP 114 / 66; Pulse 97; Resp 18; Pulse Ox 95% on 4 lpm NC; ld1 16:49 BP 115 / 65; Pulse 87; Resp 18; Pulse Ox 96% on 4 lpm NC; ld1 17:32 BP 126 / 93; Pulse 80; Resp 24; Temp 98.3; Pulse Ox 98% on 1 lpm NC; bh1 12:06 Body Mass Index 34.34 (77.11 kg, 149.86 cm) aa5 MDM: 12:47 Patient medically screened. kb 15:34 Data reviewed: vital signs, nurses notes. Data interpreted: Pulse oximetry: on room air kb is 95 %. Interpretation: normal. Counseling: I had a detailed discussion with the patient and/or guardian regarding: the historical points, exam findings, and any diagnostic results supporting the discharge/admit diagnosis, lab results, radiology results, the need for further work-up and treatment in the hospital. Physician consultation: Rogelio Waters was contacted at 15:34, regarding admission, to the telemetry unit. patient's condition, and will see patient in ED. 04/13 12:15 Order name: Basic Metabolic Panel; Complete Time: 14:02 iw 04/13 12:15 Order name: CBC with Diff; Complete Time: 17:04 iw 04/13 12:15 Order name: CPK; Complete Time: 14:02 iw 04/13 12:15 Order name: Ckmb; Complete Time: 14:02 iw 04/13 12:15 Order name: Hepatic Function; Complete Time: 14:02 iw 04/13 12:15 Order name: Lipase; Complete Time: 14:02 iw 04/13 12:15 Order name: Magnesium; Complete Time: 14:02 iw 04/13 12:15 Order name: Protime (+inr); Complete Time: 14:53 iw 04/13 12:15 Order name: Ptt, Activated; Complete Time: 14:53 iw 04/13 12:42 Order name: Glucose, Ancillary Testing; Complete Time: 12:52 EDMS 04/13 12:53 Order name: Blood Culture Adult (2) kb 04/13 12:53 Order name: Lactate; Complete Time: 13:49 kb 04/13 13:01 Order name: Flu; Complete Time: 15:40 dh3 04/13 13:01 Order name: COVID-19 SARS RT PCR (Document "Date of Onset" if Symptomatic); Complete dh3 Time: 14:53 04/13 12:15 Order name: EKG; Complete Time: 12:16 iw 04/13 12:15 Order name: Cardiac monitoring; Complete Time: 12:38 iw 04/13 12:15 Order name: EKG - Nurse/Tech; Complete Time: 12:38 iw 04/13 12:15 Order name: IV Saline Lock; Complete Time: 12:54 iw 04/13 12:15 Order name: Labs collected and sent; Complete Time: 12:54 iw 04/13 12:15 Order name: O2 Per Protocol; Complete Time: 12:38 iw 04/13 12:53 Order name: Chest Single View XRAY; Complete Time: 13:14 kb 04/13 13:29 Order name: Manual Differential; Complete Time: 17:04 EDMS 04/13 14:01 Order name: Urine Dipstick-Ancillary; Complete Time: 14:02 EDMS 04/13 14:03 Order name: Urine Microscopic Only; Complete Time: 14:30 kb 04/13 14:29 Order name: Urine Culture EDSD 04/13 12:15 Order name: O2 Sat Monitoring; Complete Time: 12:38 iw 04/13 12:15 Order name: Urine Dipstick-Ancillary (obtain specimen); Complete Time: 12:54 iw Administered Medications: 12:55 Drug: NS 0.9% 1000 ml Route: IV; Rate: 1000 ml; Site: right forearm; 1 14:00 Follow up: IV Status: Completed infusion; IV Intake: 1000ml bh1 15:22 Drug: Magnesium Sulfate 2 grams Route: IVPB; Infused Over: 2 hrs; Site: right forearm; 1 16:02 Follow up: IV Status: Completed infusion; IV Intake: 50ml bh1 15:23 Drug: Potassium Chloride 40 mEq Route: PO; bh1 15:23 Follow up: Response: No adverse reaction bh1 16:02 Follow up: Response: No adverse reaction 1 16:01 Drug: vancoMYCIN 1 grams Route: IVPB; Infused Over: 2 hrs; Site: right forearm; bh1 17:32 Follow up: BP 126 / 93; Pulse 80 bpm; Resp 24 bpm; Temp 98.3; Pulse Ox 98% 1 lpm Nasal bh1 Cannula 17:33 Follow up: IV Status: Completed infusion; IV Intake: 250ml bh1 16:11 Drug: LevaQUIN (levofloxacin) 500 mg Volume: 100 ml; Route: IVPB; Infused Over: 60 bh1 mins; Site: right forearm; 17:10 Follow up: IV Status: Completed infusion; IV Intake: 150ml bh1 Disposition: 04/14 08:09 Co-signature as Attending Physician, Olayinka Stark MD I agree with the assessment ma2 and plan of care. Disposition Summary: 04/13/22 15:40 Hospitalization Ordered Hospitalization Status: Inpatient Admission kb Provider: Rogelio Waters Location: Telemetry/MedSurg (Inpatient) kb Condition: Stable kb Problem: new kb Symptoms: are unchanged kb Bed/Room Type: Standard kb Room Assignment: 215(04/13/22 17:17) dw Diagnosis - Elevated white blood cell count kb - Pneumonia, unspecified organism kb - UTI/ Urinary tract infection, site not specified kb Forms: - Medication Reconciliation Form kb - SBAR form kb Signatures: Dispatcher [employer] EDMS Denita Spears, BAKING FACTORY WORKER-C BAKING FACTORY WORKER-Ckb Isabell Verma, RN RN Gayle Carbajal, RN RN iw Mary Bledsoe RN RN aa5 Olayinka Stark MD MD ma2 Mana Villanueva RN RN bh1 Corrections: (The following items were deleted from the chart) 04/13 15:40 15:38 Daughter reports pt has had weakness, fever, chills and decreased appetite for kb about 3 days. Today pt's bp was elevated 200/110 so she told her to come get checked out at the er. kb 17:17 15:40 kb dw
--- NOTE | 2022-04-13 15:41 | ER ---
Nurse's Notes [facility] Name: Martha Wan Age: 71 yrs Sex: Female : 1950 Arrival Date: 04/13/2022 Time: 11:50 Bed 7 Private MD: Diagnosis: Elevated white blood cell count;Pneumonia, unspecified organism;UTI/ Urinary tract infection, site not specified Presentation: 04/13 12:06 Chief complaint: Patient states: generalized weakness that began Saturday. Pt states "I aa5 can't keep my eyes open because I am dizzy". Pt also reports she has not eaten due to decreased appetite. Pt denies pain. Coronavirus screen: fatigue. Ebola Screen: Patient denies travel to an Ebola-affected area in the 21 days before illness onset. Onset of symptoms was March 2022. 12:06 Method Of Arrival: Wheelchair aa5 12:06 Acuity: VERONICA 2 aa5 12:06 Initial Sepsis Screen: Does the patient meet any 2 criteria? RR > 20 per min. Does the aa5 patient have a suspected source of infection? No. Patient's initial sepsis screen is negative. Risk Assessment: Do you want to hurt yourself or someone else? Patient reports no desire to harm self or others. Triage Assessment: 12:10 General: Appears uncomfortable, Behavior is cooperative. Pain: Denies pain. Neuro: aa5 Level of Consciousness is awake, alert, obeys commands, Oriented to person, place, time, situation. Respiratory: Airway is patent Respiratory effort is even, unlabored, Respiratory pattern is tachypnea Denies cough, shortness of breath. Derm: Skin is dry, Skin is pale, Skin temperature is warm. Historical: - Allergies: 12:09 Aspirin; aa5 12:09 PENICILLINS; aa5 - Home Meds: 14:08 Plavix Oral 75 mg daily [Active]; Aricept Oral 10 mg nightly [Active]; Tessalon Perles bh1 Oral 100 mg every 6 hours [Active]; Coreg Oral 12.5 mg twice a day [Active]; Hydrochlorothiazide Oral 12.5 mg daily [Active]; IRBESARTAN 300 mg daily [Active]; Cordarone Oral 200 mg daily [Active]; - PMHx: 12:09 angina pectoris; Hypertensive disorder; aa5 - PSHx: 12:10 section; left leg; aa5 - Immunization history:: Adult Immunizations unknown. - Social history:: Smoking status: Patient denies any tobacco usage or history of. Screenin:30 Abuse screen: Denies threats or abuse. Nutritional screening: No deficits noted. 1 Tuberculosis screening: No symptoms or risk factors identified. Fall Risk None identified. Assessment: 13:46 Reassessment: Patient appears in no apparent distress at this time. Patient and/or ld1 family updated on plan of care and expected duration. Pain level reassessed. Pt talking with family at bedside. Vital Signs: 12:06 BP 91 / 60; Pulse 67; Resp 24 S; Temp 99.0(O); Pulse Ox 92% on R/A; Weight 77.11 kg aa5 (R); Height 4 ft. 11 in. (149.86 cm) (R); 12:31 Pulse 77; Resp 26; Pulse Ox 88% on R/A; ld1 12:37 BP 95 / 50; Pulse 79; Resp 24; Pulse Ox 94% on 5 lpm NC; ld1 14:08 BP 94 / 46; Pulse 77; Resp 18; Pulse Ox 98% on 4 lpm NC; ld1 15:21 BP 100 / 61; Pulse 83; Resp 18; Pulse Ox 95% on 4 lpm NC; ld1 16:34 BP 114 / 66; Pulse 97; Resp 18; Pulse Ox 95% on 4 lpm NC; ld1 16:49 BP 115 / 65; Pulse 87; Resp 18; Pulse Ox 96% on 4 lpm NC; ld1 17:32 BP 126 / 93; Pulse 80; Resp 24; Temp 98.3; Pulse Ox 98% on 1 lpm NC; bh1 12:06 Body Mass Index 34.34 (77.11 kg, 149.86 cm) aa5 ED Course: 11:50 Patient arrived in ED. rg4 12:06 Arm band placed on. aa5 12:09 Triage completed. aa5 12:26 Mana Villanueva, RN is Primary Nurse. 1 12:38 Placed in gown. Bed in low position. Call light in reach. Side rails up X 1. Door mb7 closed. Noise minimized. Warm blanket given. 12:47 Denita Spears FNP-C is PHCP. kb 12:47 Olayinka Stark MD is Attending Physician. kb 13:01 Blood Culture Adult (2) Sent. bh1 13:01 Lactate Sent. bh1 13:01 Basic Metabolic Panel Sent. bh1 13:01 CBC with Diff Sent. bh1 13:01 CPK Sent. bh1 13:01 Ckmb Sent. bh1 13:01 Hepatic Function Sent. bh1 13:01 Lipase Sent. bh1 13:01 Magnesium Sent. bh1 13:01 Protime (+inr) Sent. bh1 13:01 Ptt, Activated Sent. bh1 13:07 Chest Single View XRAY In Process Unspecified. EDMS 14:03 Urine Microscopic Only Sent. bh1 14:03 Blood Culture Adult (2) Sent. 1 15:40 Rogelio Waters is Hospitalizing Provider. kb 17:31 Patient admitted, IV remains in place. bh1 17:31 No provider procedures requiring assistance completed. bh1 Administered Medications: 12:55 Drug: NS 0.9% 1000 ml Route: IV; Rate: 1000 ml; Site: right forearm; bh1 14:00 Follow up: IV Status: Completed infusion; IV Intake: 1000ml bh1 15:22 Drug: Magnesium Sulfate 2 grams Route: IVPB; Infused Over: 2 hrs; Site: right forearm; bh1 16:02 Follow up: IV Status: Completed infusion; IV Intake: 50ml bh1 15:23 Drug: Potassium Chloride 40 mEq Route: PO; bh1 15:23 Follow up: Response: No adverse reaction bh1 16:02 Follow up: Response: No adverse reaction bh1 16:01 Drug: vancoMYCIN 1 grams Route: IVPB; Infused Over: 2 hrs; Site: right forearm; bh1 17:32 Follow up: BP 126 / 93; Pulse 80 bpm; Resp 24 bpm; Temp 98.3; Pulse Ox 98% 1 lpm Nasal bh1 Cannula 17:33 Follow up: IV Status: Completed infusion; IV Intake: 250ml bh1 16:11 Drug: LevaQUIN (levofloxacin) 500 mg Volume: 100 ml; Route: IVPB; Infused Over: 60 bh1 mins; Site: right forearm; 17:10 Follow up: IV Status: Completed infusion; IV Intake: 150ml bh1 Medication: 17:30 VIS not applicable for this client. bh1 Intake: 14:00 IV: 1000ml; Total: 1000ml. bh1 16:02 IV: 50ml; Total: 1050ml. 1 17:10 IV: 150ml; Total: 1200ml. 1 17:33 IV: 250ml; Total: 1450ml. [facility] Outcome: 15:40 Decision to Hospitalize by Provider. kb 17:29 Admitted to Med/surg accompanied by tech, family with patient, via wheelchair, room [facility] 215, with oxygen, Report called to SHAHBAZ BA 17:29 Condition: stable 17:29 Instructed on the need for admit. 18:26 Patient left the ED. [facility] Signatures: Dispatcher [employer] EDMS Denita Spears, CASH POSTER-C CASH POSTER-Mary Doss, RN RN aa5 Claire Lind 4 Betty Maxwell, RN RN ld1 Samantha Real mb7 Mana Villanueva, RN RN 1 Corrections: (The following items were deleted from the chart) 12:11 12:06 BP 91 / 60; Pulse 67bpm; Resp 24bpm; Spontaneous; Pulse Ox 92% RA; Temp 99.0F aa5 Oral; aa5 14:09 13:46 BP 116 / 102; Pulse 78bpm; Resp 23bpm; Pulse Ox 98% 4 lpm Nasal Cannula; ld1 ld1
[2022-04-13] MEDS ORDERED: VANCOMYCIN 1 GM/VIAL ONE (16:03)
[2022-04-13] MEDS ORDERED: NA CHLORIDE 0.9% 250 ML ONE (16:03)
[2022-04-13] MEDS ORDERED: Levofloxacin500mg IV 500 MG/100 ML BAG IV ONE (16:12)
[2022-04-13 17:01] LABS: Blood Morphology Comment NOT SEEN (NOT SEEN); Platelet Estimate ADEQ
--- NOTE | 2022-04-13 17:40 | P.HP ---
Certification for Inpatient Patient admitted to: Inpatient With expected LOS: >2 Midnights Practitioner: I am a practitioner with admitting privileges, knowledge of patient current condition, hospital course, and medical plan of care. Services: Services provided to patient in accordance with Admission requirements found in Title 42 Section 412.3 of the Code of Federal Regulations Patient History Date of Service: 04/13/22 Reason for admission: Generalized weakness History of Present Illness: 71-year-old woman with a history of atrial fibrillation was brought to the emergency department due to generalized weakness. According to report patient had been sick for about 5 days with generalized weakness, loss of appetite and reduced oral intake. She had a fever at home today and her blood pressure noted to be very high with systolic in the 200s at home. Patient was brought to the emergency department where a systolic blood pressure of 90 was recorded. Temperature 99 and pulse rate of 60. It is unknown whether family members tried to treat the blood pressure before the ED presentation. There was no family member to give history during my encounter. Chest x-ray done in the emergency department showed improved but not completely resolved opacities in the lung bases. Chest x-ray compared to a previous one taken in January of this year. UA shows mild evidence of UTI. Patient is admitted for further management. Allergies Penicillins Allergy (Severe, Verified 02/02/22 11:44) Anaphylaxis aspirin Allergy (Verified 02/02/22 11:44) Anaphylaxis Home Medications: Amiodarone HCl [Cordarone*] 200 mg PO DAILY 01/27/22 Carvedilol [Coreg] 12.5 mg PO DAILY 01/27/22 Clopidogrel Bisulfate [Plavix*] 75 mg PO DAILY 01/27/22 Donepezil HCl [Aricept] 10 mg PO BEDTIME 01/27/22 Irbesartan/Hydrochlorothiazide [Avalide 300-12.5 mg Tablet] 1 each PO DAILY 01/27/22 Vancomycin/0.9 % Sod Chloride [Vanco 1.5 gm/250 ml-0.9% NaCl] 1.5 gm IV Q24H #10 plast..bag 01/30/22 - Past Medical/Surgical History Diabetic: No -: HTN -: CAD? - Family History Family History: Reviewed- Non-Contributory - Social History Alcohol use: No CD- Drugs: No Caffeine use: No Review of Systems is unable to be obtained (Due to somnolence) Physical Examination - Physical Exam General: Obese, Other (Drowsy, appear lethargic) HEENT: PERRLA, Mucous membr. moist/pink, EOMI, Sclerae nonicteric Neck: Supple, JVD not distended Respiratory: Clear to auscultation bilaterally, Normal air movement Cardiovascular: No edema, Regular rate/rhythm, Normal S1 S2 Gastrointestinal: Normal bowel sounds, Soft and benign, Non-distended, No tenderness Musculoskeletal: No swelling, No tenderness Integumentary: No rashes, No erythema, No cyanosis Neurological: Other (Somnolent, no focal motor deficits.) Lymphatics: No axilla or inguinal lymphadenopathy - Studies Laboratory Data (last 24 hrs) 04/13/22 12:52: PT 15.9 H, INR 1.35, APTT 31.7 04/13/22 12:52: WBC 20.7 H*, Hgb 13.7, Hct 40.9, Plt Count 273 04/13/22 12:52: Sodium 132 L, Potassium 3.2 L, BUN 14, Creatinine 0.93, Glucose 176 H, Magnesium 1.5 L, Total Bilirubin 2.0 H, AST 77 H, ALT 63, Alkaline Phosphatase 104, Lipase 64 L Microbiology Data (last 24 hrs): 04/13/22 13:00 Nasopharnyx Influenza Type A Antigen Screen - Final 04/13/22 13:00 Nasopharnyx Influenza Type B Antigen Screen - Final Assessment and Plan - Problems (Diagnosis) (1) Sepsis Current Visit: Yes Status: Acute (2) Pneumonia Current Visit: Yes Status: Acute (3) UTI (urinary tract infection) Current Visit: Yes Status: Acute - Plan Admitted to the medical floor. Resuscitate with IV fluid per sepsis protocol. Aggressive antibiotic therapy. Noted allergy to penicillin so will use IV Levaquin and vancomycin. Follow cultures. Neurochecks Reconcile and continue other home medications. - Advance Directives Does patient have a Living Will: No Does patient have a Durable POA for Healthcare: No
[2022-04-13] MEDS ORDERED: ACETAMINOPHEN 500 MG TAB PO PRN (20:55)
[2022-04-13] MEDS ORDERED: ONDANSETRON 4 MG/2 ML VIAL IV PRN (20:55)
[2022-04-13] MEDS: NA CHLORIDE 0.9% 1,000 ML IV SCH (21:40)
[2022-04-14 00:44] VITALS: BMI 34.3
[2022-04-14 03:58] LABS: Absolute Lymphocytes (CBC) 0.8 K/uL (0.7-4.9); Hematocrit 36.5 % (36.0-45.0); Lymphocytes % 4.8 % (15.3-44.8); MCV 88.2 fL (80-100); MPV 8.2 fL (7.6-11.3); RBC Red Blood Cell Count 4.14 M/uL (3.86-4.86)
[2022-04-14 04:25] LABS: Albumin 2.3 g/dL (3.4-5.0); Bilirubin Total 1.5 mg/dL (0.2-1.0); Magnesium 1.9 mg/dL (1.8-2.4); Phosphorus 2.4 mg/dL (2.5-4.9); Potassium 3.5 mmol/L (3.5-5.1); Protein, Total 6.4 g/dL (6.4-8.2)
[2022-04-14 04:27] LABS: Thyroid Stimulating Hormone 5.88 uIU/mL (0.360-3.740)
[2022-04-14] MEDS: NA CHLORIDE 0.9% 1,000 ML IV SCH ×3 (05:14→21:00)
[2022-04-14] MEDS: ENOXAPARIN 40 MG/0.4 ML SQ SCH (08:08)
[2022-04-14] MEDS ORDERED: POTASSIUM CL SA 10 MEQ TAB PO ONE (09:00)
[2022-04-14] MEDS ORDERED: VANCOMYCIN 1 GM in NA CHLORIDE 0.9% 250 ML IVPB SCH (09:00)
[2022-04-14] MEDS ORDERED: NA CHLORIDE 0.9% 1,000 ML IV ONE (12:31)
[2022-04-14] MEDS: VANCOMYCIN 1.25 GM in NA CHLORIDE 0.9% 250 ML IVPB SCH (13:00)
[2022-04-14] MEDS ORDERED: NA CHLORIDE 0.9% 500 ML IV ONE (14:20)
--- NOTE | 2022-04-14 15:10 | P.PN ---
Subjective Date of Service: 04/14/22 Chief Complaint: Generalized weakness Patient states she is breathing better. She reports profuse diarrhea a few days ago, associated abdominal pain. She stated her diarrhea is much better. No fever. She has been hypotensive and she took her BP meds by herself this morning. Physical Examination - Vital Signs Temperature: 97.4 F Blood Pressure: 80/48 Pulse: 92 Respirations: 24 Pulse Ox (%): 96 - Physical Exam General: Alert, In no apparent distress, Oriented x3 HEENT: Mucous membr. moist/pink, Sclerae nonicteric Neck: Supple, JVD not distended Respiratory: Clear to auscultation bilaterally, Normal air movement Cardiovascular: No edema, Regular rate/rhythm, Normal S1 S2 Gastrointestinal: Normal bowel sounds, Soft and benign, Non-distended, Tende rness (Epigastrium) Musculoskeletal: No swelling, No tenderness Integumentary: No rashes, No erythema, No cyanosis Neurological: Normal speech, Normal strength at 5/5 x4 extr - Studies Microbiology Data (last 24 hrs): 04/13/22 13:00 Nasopharnyx Influenza Type A Antigen Screen - Final 04/13/22 13:00 Nasopharnyx Influenza Type B Antigen Screen - Final Assessment And Plan - Current Problems (Diagnosis) (1) Sepsis Current Visit: Yes Status: Acute (2) Pneumonia Current Visit: Yes Status: Acute (3) UTI (urinary tract infection) Current Visit: Yes Status: Acute (4) Acute gastroenteritis Current Visit: Yes Status: Acute (5) Septic shock Current Visit: Yes Status: Acute (6) Drug-induced hypotension Current Visit: Yes Status: Acute (7) Elevated liver enzymes Current Visit: Yes Status: Acute (8) Atrial flutter Current Visit: No Status: Acute - Plan A continue current antibiotics. Add IV Flagyl given report of nausea abdominal pain and diarrhea suggestive of infection gastroenteritis. Liver enzymes also elevated Obtain CT abdomen and pelvis. Continue IV fluid resuscitation. Patient given 1.5 L normal saline. Repeat NS boluses as needed. Close BP monitoring. Transfer to ICU if she remains hypotensive. Urine culture is growing mixed gram-negative rods. Blood culture shows no growth to date. Follow cultures. Neurochecks. Hold antihypertensives. Continue other home medications. Continue amiodarone for atrial fibrillation/atrial flutter. Patient's daughter updated on her current clinical status.
--- NOTE | 2022-04-14 16:02 | RAD REPORT ---
EXAM DESCRIPTION: CT - Chest Abdomen Pelvis W Cont - 04/14/2022 3:48 pm CLINICAL HISTORY: Chest and abdomen pain. Abdominal pain, elevated LFT COMPARISON: No comparisons TECHNIQUE: Approximately 100 mL nonionic IV contrast was administered to the patient. All CT scans are performed using dose optimization technique as appropriate and may include automated exposure control or mA/KV adjustment according to patient size. FINDINGS: Mild interstitial pulmonary edema suspected.No pleural or pericardial effusion.No intratho racic adenopathy. There are 2 masslike in the left lobe of the liver measuring 5.5 x 5.5 cm superiorly 4.6 x 4.6 cm inf eriorly. No intrahepatic or extrahepatic biliary tree dilatation. The spleen, pancreas, adrenal glands and kidneys are within normal limits. No bowel obstruction, free air, free fluid or abscess. Mild sigmoid diverticulosis of the sigmoid col on. Nonvisualized appendix. No pathologic lymphadenopathy in the abdomen or pelvis. No worrisome osseous finding. IMPRESSION: Two masslike lesions are seen in the left lobe of the liver.Recommend MRI liver protocol with gadolinium contrast for further evaluation.
[2022-04-14] MEDS: Levofloxacin 750mg IV 750 MG/150 ML BAG IV SCH (16:44)
[2022-04-14] MEDS: METRONIDAZOLE 500mg IVPB 500 MG/100 ML BAG IV SCH (16:44)
[2022-04-14] MEDS: DONEPEZIL HCL 5 MG TAB PO SCH (20:59)
[2022-04-15] MEDS: METRONIDAZOLE 500mg IVPB 500 MG/100 ML BAG IV SCH ×3 (00:48→17:04)
[2022-04-15 04:19] LABS: Absolute Lymphocytes (CBC) 0.7 K/uL (0.7-4.9); Hematocrit 35.1 % (36.0-45.0); Lymphocytes % 5.1 % (15.3-44.8); MCV 89.5 fL (80-100); MPV 9.1 fL (7.6-11.3); RBC Red Blood Cell Count 3.92 M/uL (3.86-4.86)
[2022-04-15 04:32] LABS: Albumin 2.2 g/dL (3.4-5.0); Bilirubin Total 0.7 mg/dL (0.2-1.0); Potassium 4.1 mmol/L (3.5-5.1); Protein, Total 6.1 g/dL (6.4-8.2)
[2022-04-15] MEDS: CLOPIDOGREL 75 MG TABLET PO SCH (09:32)
[2022-04-15] MEDS: AMIODARONE HCL 200 MG TAB PO SCH (09:32)
[2022-04-15] MEDS: NA CHLORIDE 0.9% 1,000 ML IV SCH (09:32)
[2022-04-15] MEDS: ENOXAPARIN 40 MG/0.4 ML SQ SCH (09:33)
--- NOTE | 2022-04-15 12:06 | P.PN ---
Subjective Date of Service: 04/15/22 Chief Complaint: Generalized weakness Patient she feels more stronger today. Nursing staff reports frequent diarrhea. No fever. Blood pressure has improved. Urine culture growing E. coli. Blood culture growing gram-positive cocci in 4 bottles. Physical Examination - Vital Signs Temperature: 97.1 F Blood Pressure: 114/77 Pulse: 84 Respirations: 24 Pulse Ox (%): 95 - Physical Exam General: Alert, In no apparent distress, Oriented x3 HEENT: Mucous membr. moist/pink, Sclerae nonicteric Neck: JVD not distended Respiratory: Clear to auscultation bilaterally, Normal air movement Cardiovascular: No edema, Regular rate/rhythm, Normal S1 S2 Gastrointestinal: Normal bowel sounds, Soft and benign, Non-distended, Tenderness (Right upper quadrant.) Musculoskeletal: No swelling Integumentary: No rashes, No breakdown, No cyanosis Neurological: Normal speech, Normal strength at 5/5 x4 extr Assessment And Plan - Current Problems (Diagnosis) (1) Sepsis Current Visit: Yes Status: Acute (2) Pneumonia Current Visit: Yes Status: Acute (3) UTI (urinary tract infection) Current Visit: Yes Status: Acute (4) Acute gastroenteritis Current Visit: Yes Status: Acute (5) Septic shock Current Visit: Yes Status: Acute (6) Drug-induced hypotension Current Visit: Yes Status: Acute (7) Elevated liver enzymes Current Visit: Yes Status: Acute (8) Atrial flutter Current Visit: No Status: Acute - Plan Continue current antibiotics-vancomycin, Levaquin and Flagyl Liver enzymes also elevated. CT abdomen pelvis revealed multiple liver lesions. We will do an MRI of the liver tomorrow for more details. Blood pressure has improved. CT chest reveal pulmonary vascular congestion. Discontinue IV fluid. Urine culture is growing E. coli. Blood culture shows no growth to date. Follow cultures for antibiotic sensitivity. Continue to hold antihypertensives. Continue other home medications. Continue amiodarone for atrial fibrillation/atrial flutter. Consult to infectious disease
[2022-04-15] MEDS: VANCOMYCIN 1.25 GM in NA CHLORIDE 0.9% 250 ML IVPB SCH (13:00)
[2022-04-15] MEDS ORDERED: VANCOMYCIN 1.5 GM in NA CHLORIDE 0.9% 500 ML IVPB SCH (15:00)
[2022-04-15 16:36] LABS: Urine Appearance Clear (Clear); Urine Bilirubin Negative (Negative); Urine Blood Trace-intact (Negative); Urine Color Yellow (Yellow); Urine Glucose Negative (Negative); Urine Protein 1+ (Negative); Urine Specific Gravity >=1.030 (1.005-1.030); Urine Urobilinogen 0.2 mg/dL (0.2-1.0); Urine pH 5.5 (5.0-7.0)
[2022-04-15 16:41] LABS: Urine Microscopic Reflex ORDER UMIC
[2022-04-15 16:53] LABS: Urine Amorphous Sediment 1+ /HPF (NONE SEEN); Urine Bacteria <20 /HPF (<20); Urine RBC <5 /HPF (NONE SEEN)
[2022-04-15] MEDS: Levofloxacin 750mg IV 750 MG/150 ML BAG IV SCH (17:04)
[2022-04-15] MEDS: DONEPEZIL HCL 5 MG TAB PO SCH (21:51)
[2022-04-16] MEDS: METRONIDAZOLE 500mg IVPB 500 MG/100 ML BAG IV SCH ×3 (00:39→17:45)
[2022-04-16 06:10] LABS: Absolute Lymphocytes (CBC) 0.7 K/uL (0.7-4.9); Hematocrit 36.9 % (36.0-45.0); Lymphocytes % 4.7 % (15.3-44.8); MCV 88.8 fL (80-100); MPV 8.9 fL (7.6-11.3); RBC Red Blood Cell Count 4.16 M/uL (3.86-4.86)
[2022-04-16 06:20] LABS: Albumin 2.1 g/dL (3.4-5.0); Bilirubin Total 0.6 mg/dL (0.2-1.0); Potassium 3.4 mmol/L (3.5-5.1); Protein, Total 6.1 g/dL (6.4-8.2)
[2022-04-16] MEDS: CLOPIDOGREL 75 MG TABLET PO SCH (08:24)
[2022-04-16] MEDS: AMIODARONE HCL 200 MG TAB PO SCH (08:24)
[2022-04-16] MEDS: ENOXAPARIN 40 MG/0.4 ML SQ SCH (08:25)
[2022-04-16] MEDS ORDERED: POTASSIUM CL SA 10 MEQ TAB PO ONE (09:00)
[2022-04-16] MEDS: VANCOMYCIN 1.5 GM in NA CHLORIDE 0.9% 500 ML IVPB SCH (09:36)
--- NOTE | 2022-04-16 11:58 | EKG ---
Test Date: 2022-04-13 Test Time: 12:33:05 Egg Tester: TEDDY MEASUREMENT RESULTS: Intervals: Rate: 98 [place]: QRSD: 68 QT: 360 QTc: 459 [place]: P: [place]: QRS: 70 T: 104 INTERPRETIVE STATEMENTS: Atrial fibrillation ST & T wave abnormality, consider lateral ischemia Abnormal ECG Compared to ECG 01/27/2022 16:16:18 ST (T wave) deviation now present Atrial flutter no longer present T-wave abnormality no longer present Possible ischemia still present Electronically Signed On 04-16-22 11:52:09 CDT by Jamie Mancuso
--- NOTE | 2022-04-16 13:32 | P.PN ---
Subjective Date of Service: 04/16/22 Chief Complaint: Generalized weakness Patient reports persistent diarrhea. She states her abdominal pain is much better No fever. She has been tolerating diet. Physical Examination - Vital Signs Temperature: 97.8 F Blood Pressure: 117/57 Pulse: 115 Respirations: 16 Pulse Ox (%): 97 - Physical Exam General: Alert, In no apparent distress HEENT: Mucous membr. moist/pink Neck: JVD not distended Respiratory: Crackles/rales (Mild bibasilar Rales) Cardiovascular: No edema, Normal S1 S2, Irregular heart rate/rhythm Gastrointestinal: Soft and benign, Non-distended, No tenderness Musculoskeletal: No swelling Integumentary: No rashes, No cyanosis Neurological: Normal strength at 5/5 x4 extr - Studies Microbiology Data (last 24 hrs): 04/13/22 13:38 Clean Catch Urine [place] Count - Final BETWEEN 10,000 & 100,000 CFU/ML 04/13/22 13:38 Clean Catch Urine - Final Escherichia Coli Assessment And Plan - Current Problems (Diagnosis) (1) Sepsis Current Visit: Yes Status: Acute (2) Pneumonia Current Visit: Yes Status: Acute (3) UTI (urinary tract infection) Current Visit: Yes Status: Acute (4) Acute gastroenteritis Current Visit: Yes Status: Acute (5) Septic shock Current Visit: Yes Status: Acute (6) Drug-induced hypotension Current Visit: Yes Status: Acute (7) Elevated liver enzymes Current Visit: Yes Status: Acute (8) Atrial flutter Current Visit: No Status: Acute - Plan Alpha strep isolated from the blood culture. Repeat blood cultures pending. Urine culture: E. coli sensitive to fluoroquinolones and third-generation cephalosporins. Continue current antibiotics-vancomycin, Levaquin and Flagyl. Liver enzymes also elevated. CT abdomen pelvis revealed multiple liver lesions. MRI of the abdomen requested by told patient cannot complete it since she cannot hold her breath periodically. Blood pressure has improved. CT chest reveal pulmonary vascular congestion. Of IV fluid. Continue to hold antihypertensives. Continue other home medications. Continue amiodarone for atrial fibrillation/atrial flutter. Infectious disease consulted.
--- NOTE | 2022-04-16 15:43 | P.CNS ---
Date of Consult: 04/16/22 Chief Complaint: Generalized weakness History of Present Illness: The patient is a 71-year-old female with a past medical history of atrial fibrillation, and left ankle infection presented to the emergency department secondary to weakness. Per chart review, patient has been sick for about 5 days with generalized weakness, loss of appetite, liable blood pressure, and low- grade temperatures. Patient noted to have leukocytosis on admission. Blood cultures obtained on 04/13 grew alpha strep and 4 out of 4 bottles, repeat pending. Urine cultures obtained on 04/[address] showed masslike lesions on the liver with interstitial pulmonary edema, with no other acute fin dings. Patient currently reports watery diarrhea of 6-10 bowel movements per day, anorexia, and nausea. She denies shortness of breath or chest pain. Infectious disease has been consulted to manage patient's antibiotic regimen. Allergies Penicillins Allergy (Severe, Verified 02/02/22 11:44) Anaphylaxis aspirin Allergy (Verified 02/02/22 11:44) Anaphylaxis Home Medications: Amiodarone HCl [Cordarone*] 200 mg PO DAILY 01/27/22 Carvedilol [Coreg] 12.5 mg PO DAILY 01/27/22 Clopidogrel Bisulfate [Plavix*] 75 mg PO DAILY 01/27/22 Donepezil HCl [Aricept] 10 mg PO BEDTIME 01/27/22 Irbesartan/Hydrochlorothiazide [Avalide 300-12.5 mg Tablet] 1 each PO DAILY 01/27/22 - Past Medical/Surgical History Diabetic: No -: HTN -: CAD? - Social History Alcohol use: No CD- Drugs: No Caffeine use: No Place of Residence: Home Review of Systems 10-point ROS is otherwise unremarkable Physical Examination Temp Pulse Resp BP Pulse Ox 97.8 F 115 H 16 117/57 L 97 04/16/22 13:34 04/16/22 13:34 04/16/22 13:34 04/16/22 13:34 04/16/22 13:34 General: Alert, In no apparent distress, Obese HEENT: Atraumatic Neck: Supple, 2+ carotid pulse no bruit Respiratory: Clear to auscultation bilaterally, Normal air movement Cardiovascular: Irregular heart rate/rhythm Gastrointestinal: Tenderness (Left upper quadrant) Musculoskeletal: No clubbing, No swelling Integumentary: No rashes, No breakdown, No significant lesion Conclusions/Impression: Antibiotics Vancomycin: 04/16current Levaquin: 04/14current Flagyl: 04/14current Assessment/plan Strep bacteremia Blood cultures obtained on 04/12 grew alpha streptococci in 4 out of 4 bottles, awaiting speciation/susceptibility. Repeat blood cultures obtained on 04/15 showed no growth. Source of infection remains unclear, hurtado CT showed no acute infectious findings. Of note patient had ankle joint infection requiring surgery in January of this year. Recommend CT of left ankle to rule out seeding infection Recommend continuing vancomycin at this time. Commend discontinuing Flagyl. Urinary tract infection Urine culture growing E. coli. Recommend continuing Levaquin at this time. Patient's QTC is 495. Patient has penicillin allergy, states she swells all over. Acute diarrhea Patient reports completely watery bowel movements up to 8-10 times per day C. difficile/stool culture pending Continue isolation precautions -Recommend starting probiotic Atrial fibrillation Medical management per primary team Leukocytosis Downtrending, patient afebrile. Plan of care discussed with Dr. Moser Thank you for consultation
[2022-04-16] MEDS: Levofloxacin 750mg IV 750 MG/150 ML BAG IV SCH (17:46)
[2022-04-16] MEDS: DONEPEZIL HCL 5 MG TAB PO SCH (20:43)
[2022-04-17] MEDS: METRONIDAZOLE 500mg IVPB 500 MG/100 ML BAG IV SCH ×3 (00:01→16:12)
[2022-04-17 02:17] LABS: Absolute Lymphocytes (CBC) 0.7 K/uL (0.7-4.9); Hematocrit 37.6 % (36.0-45.0); Lymphocytes % 4.7 % (15.3-44.8); MCV 87.5 fL (80-100); MPV 8.1 fL (7.6-11.3)
[2022-04-17 02:37] LABS: Albumin 2.1 g/dL (3.4-5.0); Bilirubin Total 0.5 mg/dL (0.2-1.0); Potassium 3.5 mmol/L (3.5-5.1)
[2022-04-17 02:58] LABS: Blood Morphology Comment NOT SEEN (NOT SEEN); Platelet Estimate ADEQ
[2022-04-17] MEDS: VANCOMYCIN 1.5 GM in NA CHLORIDE 0.9% 500 ML IVPB SCH ×2 (03:21→22:09)
--- NOTE | 2022-04-17 06:38 | P.PN ---
Date of Service: 04/17/22 Subjective: Slightly improved Diarrhea slowing down, slightly formed this morning No ankle pain Minimal diet Generalized weakness ROS: 10 point ROS as noted above, otherwise negative Physical exam GEN: Alert, oriented, NAD HEENT: Normal conjunctiva, sclera anicteric CV: Regular rate and rhythm, b/l edema Pulm: bibasilar rales (mild), on room air ABD: Soft, moderate epigastric tenderness Integumentary: No rashes Neuro: Normal speech, normal affect Problem List Sepsis secondary to UTI, acute gastroenteritis alpha strep bacteremia drug-induce hypotension elevated LFTs liver lesions x2 atrial fibrillation/flutter generalized weakness alpha strep bacteremia, on broad spectrum - FQN, vanc, flagyl ID consulted unclear etiology also with watery diarrhea, concern for c .diff - pending urine culture: e. coli CT abd/pelvis: 2x liver lesions, patient and family deny any prior history MRI ordered 04/16 for further evaluation, patient reportedly unable to get done on 04/16 due to inability to take a deep breath. will try again today Continue home amiodarone for atrial fibrillation/flutter VTE: Lovenox Code: full Dispo: home, ~2-3 days patient is uninsured, will likely need prolonged IV antibiotic course, pending availb Time Spent Managing Pts Care (In Minutes): 35
[2022-04-17] MEDS ORDERED: POTASSIUM CL SA 10 MEQ TAB PO ONE (09:00)
--- NOTE | 2022-04-17 09:31 | RAD REPORT ---
EXAM DESCRIPTION: CT - Ankle Left Wo Con - 04/17/2022 9:06 am CLINICAL HISTORY: Ankle pain and swelling COMPARISON: None. TECHNIQUE: Computed axial tomography left ankle pain with coronal sagittal reconstruction All CT scans are performed using dose optimization technique as appropriate and may include automated exposure control or mA/KV adjustment according to patient size. FINDINGS: No fracture or dislocation. No bony destructive lesion visualized. A large joint effusion not noted. Diffuse edema within subcutaneous tissues IMPRESSION: Diffuse edema within the subcutaneous tissues may indicate a cellulitis and should corre lated clinically. If the patient's symptoms do not improve MRI would recommended for further evaluation
[2022-04-17] MEDS: CLOPIDOGREL 75 MG TABLET PO SCH (09:33)
[2022-04-17] MEDS: carvediloL 12.5 MG TAB PO SCH (09:33)
[2022-04-17] MEDS: AMIODARONE HCL 200 MG TAB PO SCH (09:33)
[2022-04-17] MEDS: ENOXAPARIN 40 MG/0.4 ML SQ SCH (09:33)
--- NOTE | 2022-04-17 12:06 | P.PN ---
Subjective Date of Service: 04/17/22 Chief Complaint: Generalized weakness Patient seen and examined at bedside, diarrhea improving. C. difficile still pending. Review of Systems 10-point ROS is otherwise unremarkable Physical Examination - Vital Signs Temperature: 97.0 F Blood Pressure: 135/80 Pulse: 102 Respirations: 16 Pulse Ox (%): 97 - Studies Microbiology Data (last 24 hrs): 04/13/22 12:50 Blood - Blood Aerobic Blood Culture - Final Streptococcus Anginosus [facility] 04/13/22 12:50 Blood - Blood Blood Culture Gram Stain - Final 04/13/22 12:50 Blood - Blood Anaerobic Blood Culture - Final Streptococcus Anginosus [facility] 04/13/22 12:50 Blood - Blood Gram Stain - Final 04/13/22 12:56 Blood - Blood Aerobic Blood Culture - Final Streptococcus Anginosus [facility] 04/13/22 12:56 Blood - Blood Blood Culture Gram Stain - Final 04/13/22 12:56 Blood - Blood Anaerobic Blood Culture - Final Streptococcus Anginosus [facility] 04/13/22 12:56 Blood - Blood Gram Stain - Final 04/13/22 13:38 Clean Catch Urine Dana Count - Final BETWEEN 10,000 & 100,000 CFU/ML 04/13/22 13:38 Clean Catch Urine - Final Escherichia Coli Assessment And Plan - Plan Physical exam: General: Alert, In no apparent distress, Obese HEENT: Atraumatic Neck: Supple, 2+ carotid pulse no bruit Respiratory: Clear to auscultation bilaterally, Normal air movement Cardiovascular: Irregular heart rate/rhythm Gastrointestinal: Tenderness (Left upper quadrant) Musculoskeletal: No clubbing, No swelling Integumentary: No rashes, No breakdown, No significant lesion Conclusions/Impression: Antibiotics Vancomycin: 04/16current Levaquin: 04/14current Flagyl: 04/14current Assessment/plan Strep bacteremia Blood cultures obtained on 04/12 grew alpha streptococci in 4/4 bottles, awaiting speciation/susceptibility. Repeat blood cultures obtained on 04/15 showed no growth. Source of infection remains unclear, hurtado CT showed no acute infectious findings. Did show masslike liver lesions on the liver, MRI pending. Of note patient had ankle joint infection requiring surgery in January of this year. CT of left ankle showed no signs of acute infection, did show diffuse edema in the subcutaneous tissue. Likely sequela of surgery. Recommend continuing vancomycin at this time. Commend discontinuing Flagyl. Urinary tract infection Urine culture growing E. coli. Recommend continuing Levaquin at this time. Patient's QTC is 495. Patient has penicillin allergy, states she swells all over. Acute diarrhea C. difficile/stool culture pending Continue isolation precautions -Recommend starting probiotic Atrial fibrillation Medical management per primary team Leukocytosis -Continue to trend, patient afebrile. Plan of care discussed with Dr. Moser Thank you for consultation
[2022-04-17] MEDS: Levofloxacin 750mg IV 750 MG/150 ML BAG IV SCH (17:13)
[2022-04-17] MEDS: LACTOBACILLUS/ACIDOPHILUS TAB PO SCH (22:09)
[2022-04-17] MEDS: DONEPEZIL HCL 5 MG TAB PO SCH (22:09)
[2022-04-18] MEDS: METRONIDAZOLE 500mg IVPB 500 MG/100 ML BAG IV SCH ×3 (02:04→18:13)
[2022-04-18 05:50] LABS: Hematocrit 36.7 % (36.0-45.0); MCV 89.3 fL (80-100); MPV 7.9 fL (7.6-11.3); RBC Red Blood Cell Count 4.12 M/uL (3.86-4.86)
[2022-04-18 06:08] LABS: Bilirubin Total 0.4 mg/dL (0.2-1.0); Magnesium 1.8 mg/dL (1.8-2.4); Potassium 3.7 mmol/L (3.5-5.1); Protein, Total 5.7 g/dL (6.4-8.2)
--- NOTE | 2022-04-18 06:33 | P.PN ---
Date of Service: 04/18/22 Subjective: diarrhea slightly improved feels tired swelling continues, with shortness of breath ROS: 10 point ROS as noted above, otherwise negative Physical exam GEN: Alert, oriented, NAD HEENT: Normal conjunctiva, sclera anicteric CV: Regular rate and rhythm, 2+ b/l lower extremity edema Pulm: bibasilar rales (mild), on 2L NC ABD: Soft, non-distended Integumentary: No rashes Neuro: Normal speech, normal affect Problem List Sepsis secondary to UTI, acute gastroenteritis alpha strep bacteremia hypotension elevated LFTs liver lesions x2 atrial fibrillation/flutter; chronic generalized weakness alpha strep bacteremia, on broad spectrum - FQN, vanc, flagyl growing strep anginosus ID consulted unclear etiology also with watery diarrhea, concern for c .diff - pending urine culture: e. coli CT abd/pelvis: 2x liver lesions, patient and family deny any prior history MRI ordered 04/16 for further evaluation, patient reportedly unable to get done on 04/16 due to inability to take a deep breath. 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
--- NOTE | 2022-04-18 07:31 | RAD REPORT ---
EXAM DESCRIPTION: Tawanda Single View04/18/2022 6:54 am CLINICAL HISTORY: Shortness of breath COMPARISON: April 13 FINDINGS: The lungs appear clear of acute infiltrate. The heart is mildly to moderately enlarged IMPRESSION: No acute abnormalities displayed
[2022-04-18] MEDS ORDERED: MAGNESIUM SULFATE 1 gm IVPB 1 GM/100 ML BAG IV ONE (08:00)
[2022-04-18] MEDS: LACTOBACILLUS/ACIDOPHILUS TAB PO SCH ×2 (08:17→21:03)
[2022-04-18] MEDS: carvediloL 12.5 MG TAB PO SCH (08:17)
[2022-04-18] MEDS: CLOPIDOGREL 75 MG TABLET PO SCH (08:17)
[2022-04-18] MEDS: FUROSEMIDE 20 MG/ 2ML VIAL IV SCH (08:17)
[2022-04-18] MEDS: AMIODARONE HCL 200 MG TAB PO SCH (08:17)
[2022-04-18] MEDS: ENOXAPARIN 40 MG/0.4 ML SQ SCH (08:17)
[2022-04-18] MEDS ORDERED: POTASSIUM CL SA 10 MEQ TAB PO ONE (09:00)
--- NOTE | 2022-04-18 13:15 | P.PN ---
Subjective Date of Service: 04/18/22 Chief Complaint: Generalized weakness Patient seen and examined at bedside, complains of mid epigastric abdominal pain. Review of Systems 10-point ROS is otherwise unremarkable Physical Examination - Vital Signs Temperature: 97.1 F Blood Pressure: 92/66 Pulse: 83 Respirations: 17 Pulse Ox (%): 98 - Studies Laboratory Last Values WBC 20.7 K/uL (4.3-10.9) H* 04/13/22 12:52 RBC 4.67 M/uL (3.86-4.86) 04/13/22 12:52 Hgb 13.7 g/dL (12.0-15.0) 04/13/22 12:52 Hct 40.9 % (36.0-45.0) 04/13/22 12:52 MCV 87.5 fL (80-100) 04/13/22 12:52 MCH 29.4 pg (27.0-35.0) 04/13/22 12:52 MCHC 33.5 g/dL (32.0-36.0) 04/13/22 12:52 RDW 14.6 % (12.1-15.2) 04/13/22 12:52 Plt Count 273 K/uL (152-406) 04/13/22 12:52 MPV 8.2 fL (7.6-11.3) 04/13/22 12:52 Neutrophils % 85.5 % (41.7-73.7) H 04/13/22 12:52 Lymphocytes % 3.2 % (15.3-44.8) L 04/13/22 12:52 Monocytes % 10.8 % (3.3-12.3) 04/13/22 12:52 Eosinophils % 0.0 % (0-4.4) 04/13/22 12:52 Basophils % 0.5 % (0-1.3) 04/13/22 12:52 Absolute Neutrophils 17.7 K/uL (1.8-8.0) H 04/13/22 12:52 Segmented Neutrophils 83 % (40-80) H 04/13/22 12:52 Band Neutrophils 1 % (0-1) 04/13/22 12:52 Absolute Lymphocytes 0.7 K/uL (0.7-4.9) 04/13/22 12:52 Lymphocytes 6 % (15-42) L 04/13/22 12:52 Monocytes 10 % (0-10) 04/13/22 12:52 Absolute Monocytes 2.2 K/uL (0.1-1.3) H 04/13/22 12:52 Absolute Eosinophils 0.0 K/uL (0-0.5) 04/13/22 12:52 Absolute Basophils 0.1 K/uL (0-0.5) 04/13/22 12:52 Platelet Estimate Adeq 04/13/22 12:52 Morphology Comment Not seen (NOT SEEN) 04/13/22 12:52 PT 15.9 SECONDS (9.5-12.5) H 04/13/22 12:52 INR 1.35 04/13/22 12:52 APTT 31.7 SECONDS (24.3-36.9) 04/13/22 12:52 Sodium 132 mmol/L (136-145) L 04/13/22 12:52 Potassium 3.2 mmol/L (3.5-5.1) L 04/13/22 12:52 Chloride 96 mmol/L (98-107) L 04/13/22 12:52 Carbon Dioxide 29 mmol/L (21-32) 04/13/22 12:52 Anion Gap 10.2 mEq/L (5.0-15.0) 04/13/22 12:52 BUN 14 mg/dL (7-18) 04/13/22 12:52 Creatinine 0.93 mg/dL (0.55-1.3) 04/13/22 12:52 Est GFR (CKD-EPI) 67 ml/min (=/>90) L 04/13/22 12:52 Glucose 176 mg/dL (74-106) H 04/13/22 12:52 POC Glucose 178 mg/dL (65-120) H 04/13/22 12:29 Lactic Acid 1.3 mmol/L (0.4-2.0) 04/13/22 12:56 Calcium 8.8 mg/dL (8.5-10.1) 04/13/22 12:52 Magnesium 1.5 mg/dL (1.8-2.4) L 04/13/22 12:52 Total Bilirubin 2.0 mg/dL (0.2-1.0) H 04/13/22 12:52 Direct Bilirubin 0.6 mg/dL (0-0.2) H 04/13/22 12:52 AST 77 U/L (15-37) H 04/13/22 12:52 ALT 63 U/L (12-78) 04/13/22 12:52 Alkaline Phosphatase 104 U/L (45-117) 04/13/22 12:52 Creatine Kinase 42 U/L (26-192) 04/13/22 12:52 CK-MB (CK-2) < 1.0 ng/mL (1.0-3.6) L 04/13/22 12:52 Serum Total Protein 7.4 g/dL (6.4-8.2) 04/13/22 12:52 Albumin 3.0 g/dL (3.4-5.0) L 04/13/22 12:52 Globulin 4.4 g/dL (2.3-3.5) H 04/13/22 12:52 Albumin/Globulin Ratio 0.7 (1.1-1.8) L 04/13/22 12:52 Lipase 64 U/L (73-393) L 04/13/22 12:52 Urine pH 5.5 (5.0-7.0) 04/13/22 13:58 Ur Specific [place] >=1.030 (1.005-1.030) 04/13/22 13:58 Glucose (UA)(Auto) Negative (Negative) 04/13/22 13:58 Urine Ketones Negative (Negative) 04/13/22 13:58 Urine Blood Negative (Negative) 04/13/22 13:58 Urine Nitrite Positive (Negative) H 04/13/22 13:58 Ur Leukocyte Esterase Negative (Negative) 04/13/22 13:58 Urine RBC <5 /HPF (NONE SEEN) 04/13/22 13:38 Urine WBC 5-10 /HPF (<5) H 04/13/22 13:38 Ur Squamous Epith Cells 5-10 /HPF (NONE SEEN) H 04/13/22 13:38 Urine Bacteria <20 /HPF (<20) 04/13/22 13:38 Urine Mucus 1+ /HPF (NONE SEEN) 04/13/22 13:38 Urine Culture Reflexed Reflexed 04/13/22 13:38 Urine Total Protein 2+ (Negative) H 04/13/22 13:58 SARS-CoV-2 Rap RNA(RT-PCR) Negative (NEGATIVE) 04/13/22 13:01 Microbiology Data (last 24 hrs): 04/13/22 12:50 Blood - Blood Aerobic Blood Culture - Final Streptococcus Anginosus [facility] 04/13/22 12:50 Blood - Blood Blood Culture Gram Stain - Final 04/13/22 12:50 Blood - Blood Anaerobic Blood Culture - Final Streptococcus Anginosus [facility] 04/13/22 12:50 Blood - Blood Gram Stain - Final 04/13/22 12:56 Blood - Blood Aerobic Blood Culture - Final Streptococcus Anginosus [facility] 04/13/22 12:56 Blood - Blood Blood Culture Gram Stain - Final 04/13/22 12:56 Blood - Blood Anaerobic Blood Culture - Final Streptococcus Anginosus [facility] 04/13/22 12:56 Blood - Blood Gram Stain - Final Assessment And Plan - Plan Physical exam: General: Alert, In no apparent distress, Obese HEENT: Atraumatic Neck: Supple, 2+ carotid pulse no bruit Respiratory: Clear to auscultation bilaterally, Normal air movement Cardiovascular: Irregular heart rate/rhythm Gastrointestinal: Tenderness to mid epigastric area) Musculoskeletal: No clubbing, No swelling Integumentary: No rashes, No breakdown, No significant lesion Conclusions/Impression: Antibiotics Vancomycin: 04/16current Levaquin: 04/14current Flagyl: 04/14current Assessment/plan Strep bacteremia Blood cultures obtained on 04/12 grew strep anginosus in 4/4 bottles. Repeat blood cultures obtained on 04/15 showed no growth. Source of infection remains unclear, panCT showed no acute infectious findings. Did show masslike liver lesions on the liver, MRI pending. Of note patient had ankle joint infection requiring surgery in January of this year. CT of left ankle showed no signs of acute infection, did show diffuse edema in the subcutaneous tissue. Likely sequela of surgery. Recommend continuing vancomycin at this time. -Patient will need PICC line placed and 2 weeks of IV antibiotics -Echo pending Urinary tract infection Urine culture growing E. coli. Recommend continuing Levaquin at this time. Patient's QTC is 495. Patient has penicillin allergy, states she swells all over. Acute diarrhea C. difficile/stool culture pending Continue isolation precautions -Continue probiotic Atrial fibrillation Medical management per primary team Leukocytosis -Continue to trend, patient afebrile. Plan of care discussed with Dr. Moser Thank you for consultation
[2022-04-18] MEDS ORDERED: ALBUMIN HUM 5% 250 ML IV SCH (16:00)
[2022-04-18] MEDS: VANCOMYCIN 1.5 GM in NA CHLORIDE 0.9% 500 ML IVPB SCH (16:06)
--- NOTE | 2022-04-18 17:09 | RAD REPORT ---
EXAM DESCRIPTION: MRI - Mri Abdomen W/Wo Cont - 04/18/2022 3:55 pm CLINICAL HISTORY: Liver lesions COMPARISON: Chest Abdomen Pelvis W Cont dated 04/14/2022 FINDINGS: MRI of the abdomen was obtained with and without contrast. 2 large lesions in the left hepatic lobe are identified, 1 measures 6.5 cm and the other measures 6.7 cm. No other lesions are identified. The masses have a web-like enhancement pattern with intervening cystic or necrotic spaces.The lesions are well defined. The portal vein is patient. Hepatic steatosis. Tiny renal cysts. No retroperitoneal lymphadenopathy. No aortic aneurysm is seen. Gallbladder is unremarkable. No pancreatic mass is seen. IMPRESSION: Two large masses in the left hepatic lobe with atypical enhancement pattern. The differe ntial is primarily neoplasm versus infection including parasitic infections. Recommend clinical corre lation.
[2022-04-18] MEDS: Levofloxacin 750mg IV 750 MG/150 ML BAG IV SCH (19:37)
[2022-04-18] MEDS: DONEPEZIL HCL 5 MG TAB PO SCH (21:03)
[2022-04-19] MEDS: METRONIDAZOLE 500mg IVPB 500 MG/100 ML BAG IV SCH ×3 (01:09→17:16)
[2022-04-19 06:22] LABS: Hematocrit 37.3 % (36.0-45.0); MCV 89.1 fL (80-100); MPV 7.9 fL (7.6-11.3); RBC Red Blood Cell Count 4.19 M/uL (3.86-4.86)
[2022-04-19 06:42] LABS: Albumin 2.3 g/dL (3.4-5.0); Bilirubin Total 0.5 mg/dL (0.2-1.0); Magnesium 1.6 mg/dL (1.8-2.4); Potassium 3.4 mmol/L (3.5-5.1)
--- NOTE | 2022-04-19 06:43 | P.PN ---
Date of Service: 04/19/22 Subjective: MRI done last night, no conclusive findings diarrhea improved last night, but returning this morning again continues with epigastric pain overall feels slightly better edema and breathing minimally improved leukocytosis stable ROS: 10 point ROS as noted above, otherwise negative Physical exam GEN: Alert, oriented HEENT: Normal conjunctiva, sclera anicteric CV: Regular rate and rhythm, 2+ b/l lower extremity edema to mid-thigh Pulm: bibasilar rales (mild), on 2L NC, mildly labored ABD: Soft, non-distended; moderate tenderness to light palpation in epigastrium / RUQ Integumentary: No rashes Neuro: Normal speech, normal affect Problem List Sepsis secondary to UTI, acute gastroenteritis strep anginosus bacteremia hypotension elevated LFTs liver lesions x2 atrial fibrillation/flutter; chronic generalized weakness strep anginosus bacteremia - unclear source, no skin infections; no obvious oral infections cultures done in January when she was treated for septic arthritis of L ankle: negative continue vancomycin, flagyl, levaquin UTI: e.coli ID consulted TTE: without evidence of vegetation, poor windows MESFIN recommended diarrhea persists, c.diff negative, stool culture negative MRI measured lesions ~6.5 cm, up from ~5cm on CT GI consulted AFP ,e. Histolytica antibody, hepatitis panel, liver biopsy ordered discussed with radiology - patient has been taking her plavix, last took yesterday. Overall low risk of bleed if performs aspiration. Patient's improvement has plateaued, has persistent leukocytosis of 15,000, benefits outweigh the risks to have this procedure done. Patient and daughter in agreement. unclear if livers lesions are abscess (strep anginosus) vs neoplasm last c-scope ~7 yrs ago, no polyps/suspicious lesions, +diverticulosis denies history of colon cancer, only remote famliy member - maternal great grandmother with colon cancer patient with h/o HTN and breast cancer (now s/p mastectomy) VTE: Lovenox Code: full Dispo: home, ~2-3 days patient is uninsured, will need prolonged IV antibiotic course, PICC ordered TTE negative for vegation, but poor windows needs MESFIN would benefit from tertiary center given everything going on daughter in agreement, transfer initiated Time Spent Managing Pts Care (In Minutes): 35
[2022-04-19] MEDS ORDERED: MAGNESIUM SULFATE 1 gm IVPB 1 GM/100 ML BAG IV ONE (08:30)
[2022-04-19] MEDS ORDERED: POTASSIUM CL SA 10 MEQ TAB PO ONE ×2 (09:00→20:00)
[2022-04-19 09:25] LABS: Protime INR 1.73
[2022-04-19] MEDS: FUROSEMIDE 20 MG/ 2ML VIAL IV SCH (10:30)
[2022-04-19] MEDS: AMIODARONE HCL 200 MG TAB PO SCH (10:30)
--- NOTE | 2022-04-19 10:35 | RAD REPORT ---
EXAM DESCRIPTION: US - Liver Biopsy Procedure - 04/19/2022 9:49 am CLINICAL HISTORY: liver lesions, infection vs neoplasm COMPARISON: No comparisons FINDINGS: Preoperative diagnosis: Liver masses. Post operative diagnosis: Same. Conscious Sedation: None Fluoroscopy time: None Contrast used: None Estimated blood loss: Minimal Specimens:3 core samples obtained The upper abdomen was prepped and draped in the usual sterile fashion. 1% lidocaine was infiltrated i nto the subcutaneous tissues for local anesthesia. Real time ultrasound scanning of the liver demonst rated the 2 masses in the left hepatic lobe. Under ultrasound guidance, using a 18-gauge, 6 cm long, 2 cm throw core biopsy gun, 3 specimens were obtained of this lesion and sent to pathology for evalua tion. There were no complications. IMPRESSION: 1. Technically successful ultrasound-guided core biopsy of a suspicious mass in the left hepatic lobe. 2. No immediate complications.
[2022-04-19] MEDS: carvediloL 12.5 MG TAB PO SCH (10:48)
[2022-04-19] MEDS: LACTOBACILLUS/ACIDOPHILUS TAB PO SCH ×2 (10:48→20:26)
[2022-04-19] MEDS: VANCOMYCIN 1.5 GM in NA CHLORIDE 0.9% 500 ML IVPB SCH (11:41)
[2022-04-19 13:08] LABS: C.diff Antigen/Toxin Ag neg : Tox neg (NEG : NEG)
--- NOTE | 2022-04-19 14:20 | ECHO ---
HEIGHT: 4 ft 11 in WEIGHT: 170 lb 0 oz DATE OF STUDY: 04/18/[address]: Gorge De La Torre MD 2-DIMENSIONAL: YES M.MODE: YES DOPPLER: YES COLOR FLOW: YES TDS: PORTABLE: YES DEFINITY: BUBBLE STUDY: DIAGNOSIS: GRAM POSITIVE BACTERERMIA CARDIAC HISTORY: CATHERIZATION: SURGERY: PROSTHETIC VALVE: PACEMAKER: MEASUREMENTS (cm) DIASTOLIC (NORMALS) SYSTOLIC (NORMALS) IVSd 1.3 (0.6-1.2) LA Diam 3.6 (1.9-4.0) LVEF 62% LVIDd 3.8 (3.5-5.7) LVIDs 2.6 (2.0-3.5) %FS 33% LVPWd 1.1 (0.6-1.2) Ao Diam 2.9 (2.0-3.7) 2 DIMENSIONAL ASSESSMENT: RIGHT ATRIUM: NORMAL LEFT ATRIUM: NORMAL RIGHT VENTRICLE: NORMAL LEFT VENTRICLE: NORMAL TRICUSPID VALVE: MILD TRICUSPID REGURGITATION MITRAL VALVE: MILD MITRAL REGURGITATION PULMONIC VALVE: MILD PULMONIC INSUFFICIECNY AORTIC VALVE: THICKENED, NO AORTIC STENSOSIS PERICARDIAL EFFUSION: NONE AORTIC ROOT: NORMAL LEFT VENTRICULAR WALL MOTION: NORMAL DOPPLER/COLOR FLOW: SEE BELOW COMMENTS: NORMAL LEFT VENTRTICULAR EJECTION FRACTION 60-65%. WITH NORMAL WALL MOTION. THICKENED AORTIC VALVE, NO CLEAR VEGETATION IS SEEN. MILD MITRAL REGURGITATION, MILD TRICUSPID REGURGITATION, MILD PULMONIC INSUFFICIENCY. NO CLEAR VEGETATION IS SEEN BUT WINDOWS ARE LIMITED, RECOMMEND TRANSESOPHAGEAL ECHOCARDIOGRAM IF CLINICALLY INDICATED. TECHNOLOGIST: MANDY CISNEROS
--- NOTE | 2022-04-19 14:25 | P.PN ---
Subjective Date of Service: 04/19/22 Chief Complaint: Generalized weakness Patient seen and examined at bedside status post liver biopsy, patient in room recovering well. Review of Systems 10-point ROS is otherwise unremarkable Physical Examination - Vital Signs Temperature: 96.7 F Blood Pressure: 138/75 Pulse: 97 Respirations: 16 Pulse Ox (%): 96 - Studies Laboratory Last Values WBC 20.7 K/uL (4.3-10.9) H* 04/13/22 12:52 RBC 4.67 M/uL (3.86-4.86) 04/13/22 12:52 Hgb 13.7 g/dL (12.0-15.0) 04/13/22 12:52 Hct 40.9 % (36.0-45.0) 04/13/22 12:52 MCV 87.5 fL (80-100) 04/13/22 12:52 MCH 29.4 pg (27.0-35.0) 04/13/22 12:52 MCHC 33.5 g/dL (32.0-36.0) 04/13/22 12:52 RDW 14.6 % (12.1-15.2) 04/13/22 12:52 Plt Count 273 K/uL (152-406) 04/13/22 12:52 MPV 8.2 fL (7.6-11.3) 04/13/22 12:52 Neutrophils % 85.5 % (41.7-73.7) H 04/13/22 12:52 Lymphocytes % 3.2 % (15.3-44.8) L 04/13/22 12:52 Monocytes % 10.8 % (3.3-12.3) 04/13/22 12:52 Eosinophils % 0.0 % (0-4.4) 04/13/22 12:52 Basophils % 0.5 % (0-1.3) 04/13/22 12:52 Absolute Neutrophils 17.7 K/uL (1.8-8.0) H 04/13/22 12:52 Segmented Neutrophils 83 % (40-80) H 04/13/22 12:52 Band Neutrophils 1 % (0-1) 04/13/22 12:52 Absolute Lymphocytes 0.7 K/uL (0.7-4.9) 04/13/22 12:52 Lymphocytes 6 % (15-42) L 04/13/22 12:52 Monocytes 10 % (0-10) 04/13/22 12:52 Absolute Monocytes 2.2 K/uL (0.1-1.3) H 04/13/22 12:52 Absolute Eosinophils 0.0 K/uL (0-0.5) 04/13/22 12:52 Absolute Basophils 0.1 K/uL (0-0.5) 04/13/22 12:52 Platelet Estimate Adeq 04/13/22 12:52 Morphology Comment Not seen (NOT SEEN) 04/13/22 12:52 PT 15.9 SECONDS (9.5-12.5) H 04/13/22 12:52 INR 1.35 04/13/22 12:52 APTT 31.7 SECONDS (24.3-36.9) 04/13/22 12:52 Sodium 132 mmol/L (136-145) L 04/13/22 12:52 Potassium 3.2 mmol/L (3.5-5.1) L 04/13/22 12:52 Chloride 96 mmol/L (98-107) L 04/13/22 12:52 Carbon Dioxide 29 mmol/L (21-32) 04/13/22 12:52 Anion Gap 10.2 mEq/L (5.0-15.0) 04/13/22 12:52 BUN 14 mg/dL (7-18) 04/13/22 12:52 Creatinine 0.93 mg/dL (0.55-1.3) 04/13/22 12:52 Est GFR (CKD-EPI) 67 ml/min (=/>90) L 04/13/22 12:52 Glucose 176 mg/dL (74-106) H 04/13/22 12:52 POC Glucose 178 mg/dL (65-120) H 04/13/22 12:29 Lactic Acid 1.3 mmol/L (0.4-2.0) 04/13/22 12:56 Calcium 8.8 mg/dL (8.5-10.1) 04/13/22 12:52 Magnesium 1.5 mg/dL (1.8-2.4) L 04/13/22 12:52 Total Bilirubin 2.0 mg/dL (0.2-1.0) H 04/13/22 12:52 Direct Bilirubin 0.6 mg/dL (0-0.2) H 04/13/22 12:52 AST 77 U/L (15-37) H 04/13/22 12:52 ALT 63 U/L (12-78) 04/13/22 12:52 Alkaline Phosphatase 104 U/L (45-117) 04/13/22 12:52 Creatine Kinase 42 U/L (26-192) 04/13/22 12:52 CK-MB (CK-2) < 1.0 ng/mL (1.0-3.6) L 04/13/22 12:52 Serum Total Protein 7.4 g/dL (6.4-8.2) 04/13/22 12:52 Albumin 3.0 g/dL (3.4-5.0) L 04/13/22 12:52 Globulin 4.4 g/dL (2.3-3.5) H 04/13/22 12:52 Albumin/Globulin Ratio 0.7 (1.1-1.8) L 04/13/22 12:52 Lipase 64 U/L (73-393) L 04/13/22 12:52 Urine pH 5.5 (5.0-7.0) 04/13/22 13:58 Ur Specific [place] >=1.030 (1.005-1.030) 04/13/22 13:58 Glucose (UA)(Auto) Negative (Negative) 04/13/22 13:58 Urine Ketones Negative (Negative) 04/13/22 13:58 Urine Blood Negative (Negative) 04/13/22 13:58 Urine Nitrite Positive (Negative) H 04/13/22 13:58 Ur Leukocyte Esterase Negative (Negative) 04/13/22 13:58 Urine RBC <5 /HPF (NONE SEEN) 04/13/22 13:38 Urine WBC 5-10 /HPF (<5) H 04/13/22 13:38 Ur Squamous Epith Cells 5-10 /HPF (NONE SEEN) H 04/13/22 13:38 Urine Bacteria <20 /HPF (<20) 04/13/22 13:38 Urine Mucus 1+ /HPF (NONE SEEN) 04/13/22 13:38 Urine Culture Reflexed Reflexed 04/13/22 13:38 Urine Total Protein 2+ (Negative) H 04/13/22 13:58 SARS-CoV-2 Rap RNA(RT-PCR) Negative (NEGATIVE) 04/13/22 13:01 Assessment And Plan - Plan Physical exam: General: Alert, In no apparent distress, Obese HEENT: Atraumatic Neck: Supple, 2+ carotid pulse no bruit Respiratory: Clear to auscultation bilaterally, Normal air movement Cardiovascular: Irregular heart rate/rhythm Gastrointestinal: Tenderness to mid epigastric area) Musculoskeletal: No clubbing, No swelling Integumentary: No rashes, No breakdown, No significant lesion. Conclusions/Impression: Antibiotics Vancomycin: 04/16current Levaquin: 04/14current Flagyl: 04/14current Assessment/plan Strep bacteremia Blood cultures obtained on 04/12 grew strep anginosus in 4/4 bottles. Repeat blood cultures obtained on 04/15 showed no growth. Source of infection remains unclear, panCT showed 2 masslike lesions in the left lobe of the liver. MRI showed 2 large masses with atypical enhancement pattern concerning for neoplasm versus infection versus parasitic infection. Liver biopsy via ultrasound performed on 04/19, awaiting results. Of note patient had ankle joint infection requiring surgery in January of this year. CT of left ankle showed no signs of acute infection, did show diffuse edema in the subcutaneous tissue. Likely sequela of surgery. Recommend continuing vancomycin at this time. -Patient refused PICC line -Echo pending Urinary tract infection Urine culture growing E. coli. Recommend continuing Levaquin at this time. Patient's QTC is 495. Patient has penicillin allergy, states she swells all over. Acute diarrhea C. difficile/stool culture pending -E. histolytica serum antigen pending Continue isolation precautions -Continue probiotic Atrial fibrillation Medical management per primary team Leukocytosis -Continue to trend, patient afebrile. Plan of care discussed with Dr. Moser Thank you for consultation
[2022-04-19] MEDS: Levofloxacin 750mg IV 750 MG/150 ML BAG IV SCH (17:16)
[2022-04-19] MEDS: DONEPEZIL HCL 5 MG TAB PO SCH (20:26)
[2022-04-20] MEDS: METRONIDAZOLE 500mg IVPB 500 MG/100 ML BAG IV SCH ×3 (00:52→16:19)
[2022-04-20] MEDS: VANCOMYCIN 1.5 GM in NA CHLORIDE 0.9% 500 ML IVPB SCH ×2 (03:06→21:00)
--- NOTE | 2022-04-20 06:25 | P.PN ---
Date of Service: 04/20/22 Subjective: ROS: 10 point ROS as noted above, otherwise negative Physical exam GEN: Alert, oriented HEENT: Normal conjunctiva, sclera anicteric CV: Regular rate and rhythm, 2+ b/l lower extremity edema to mid-thigh Pulm: bibasilar rales (mild), on 2L NC, mildly labored ABD: Soft, non-distended; moderate tenderness to light palpation in epigastrium / RUQ Integumentary: No rashes Neuro: Normal speech, normal affect Problem List Sepsis secondary to UTI, acute gastroenteritis strep anginosus bacteremia hypotension elevated LFTs liver lesions x2 atrial fibrillation/flutter; chronic generalized weakness strep anginosus bacteremia - unclear source, no skin infections; no obvious oral infections cultures done in January when she was treated for septic arthritis of L ankle: negative continue vancomycin, flagyl, levaquin UTI: e.coli ID consulted TTE: without evidence of vegetation, poor windows MESFIN recommended diarrhea persists, c.diff negative, stool culture negative MRI measured lesions ~6.5 cm, up from ~5cm on CT GI consulted AFP ,e. Histolytica antibody, hepatitis panel, liver biopsy ordered discussed with radiology - patient has been taking her plavix, last took yesterday. Overall low risk of bleed if performs aspiration. Patient's improvement has plateaued, has persistent leukocytosis of 15,000, benefits outweigh the risks to have this procedure done. Patient and daughter in agreement. unclear if livers lesions are abscess (strep anginosus) vs neoplasm last c-scope ~7 yrs ago, no polyps/suspicious lesions, +diverticulosis denies history of colon cancer, only remote famliy member - maternal great grandmother with colon cancer patient with h/o HTN and breast cancer (now s/p mastectomy) VTE: Lovenox Code: full Dispo: home, ~2-3 days patient is uninsured, will need prolonged IV antibiotic course, PICC ordered TTE negative for vegation, but poor windows needs MESFIN would benefit from tertiary center given everything going on daughter in agreement, transfer initiated Time Spent Managing Pts Care (In Minutes): 35
[2022-04-20] MEDS ORDERED: PANTOPRAZOLE 40MG TABLET PO SCH (06:30)
[2022-04-20 07:52] LABS: Hematocrit 37.8 % (36.0-45.0); MCV 89.6 fL (80-100); MPV 8.2 fL (7.6-11.3); RBC Red Blood Cell Count 4.22 M/uL (3.86-4.86)
[2022-04-20 07:59] LABS: Albumin 2.3 g/dL (3.4-5.0); Bilirubin Total 0.4 mg/dL (0.2-1.0); Magnesium 1.7 mg/dL (1.8-2.4); Potassium 3.2 mmol/L (3.5-5.1)
[2022-04-20] MEDS: carvediloL 12.5 MG TAB PO SCH (08:19)
[2022-04-20] MEDS: FUROSEMIDE 20 MG/ 2ML VIAL IV SCH (08:20)
[2022-04-20] MEDS: LACTOBACILLUS/ACIDOPHILUS TAB PO SCH ×2 (08:20→20:20)
[2022-04-20] MEDS: AMIODARONE HCL 200 MG TAB PO SCH (08:20)
[2022-04-20] MEDS ORDERED: POTASSIUM CL SA 10 MEQ TAB PO ONE (11:03)
[2022-04-20] MEDS ORDERED: MAGNESIUM SULFATE 1 gm IVPB 1 GM/100 ML BAG IV ONE (11:04)
[2022-04-20] MEDS ORDERED: FUROSEMIDE 20 MG/ 2ML VIAL IV ONE (12:00)
--- NOTE | 2022-04-20 12:25 | P.PN ---
Subjective Date of Service: 04/20/22 Chief Complaint: Generalized weakness Patient seen and examined at bedside, plan for transfer for transesophageal echocardiogram. Review of Systems 10-point ROS is otherwise unremarkable Physical Examination - Vital Signs Temperature: 97.9 F Blood Pressure: 139/72 Pulse: 74 Respirations: 16 Pulse Ox (%): 93 - Studies Laboratory Last Values WBC 20.7 K/uL (4.3-10.9) H* 04/13/22 12:52 RBC 4.67 M/uL (3.86-4.86) 04/13/22 12:52 Hgb 13.7 g/dL (12.0-15.0) 04/13/22 12:52 Hct 40.9 % (36.0-45.0) 04/13/22 12:52 MCV 87.5 fL (80-100) 04/13/22 12:52 MCH 29.4 pg (27.0-35.0) 04/13/22 12:52 MCHC 33.5 g/dL (32.0-36.0) 04/13/22 12:52 RDW 14.6 % (12.1-15.2) 04/13/22 12:52 Plt Count 273 K/uL (152-406) 04/13/22 12:52 MPV 8.2 fL (7.6-11.3) 04/13/22 12:52 Neutrophils % 85.5 % (41.7-73.7) H 04/13/22 12:52 Lymphocytes % 3.2 % (15.3-44.8) L 04/13/22 12:52 Monocytes % 10.8 % (3.3-12.3) 04/13/22 12:52 Eosinophils % 0.0 % (0-4.4) 04/13/22 12:52 Basophils % 0.5 % (0-1.3) 04/13/22 12:52 Absolute Neutrophils 17.7 K/uL (1.8-8.0) H 04/13/22 12:52 Segmented Neutrophils 83 % (40-80) H 04/13/22 12:52 Band Neutrophils 1 % (0-1) 04/13/22 12:52 Absolute Lymphocytes 0.7 K/uL (0.7-4.9) 04/13/22 12:52 Lymphocytes 6 % (15-42) L 04/13/22 12:52 Monocytes 10 % (0-10) 04/13/22 12:52 Absolute Monocytes 2.2 K/uL (0.1-1.3) H 04/13/22 12:52 Absolute Eosinophils 0.0 K/uL (0-0.5) 04/13/22 12:52 Absolute Basophils 0.1 K/uL (0-0.5) 04/13/22 12:52 Platelet Estimate Adeq 04/13/22 12:52 Morphology Comment Not seen (NOT SEEN) 04/13/22 12:52 PT 15.9 SECONDS (9.5-12.5) H 04/13/22 12:52 INR 1.35 04/13/22 12:52 APTT 31.7 SECONDS (24.3-36.9) 04/13/22 12:52 Sodium 132 mmol/L (136-145) L 04/13/22 12:52 Potassium 3.2 mmol/L (3.5-5.1) L 04/13/22 12:52 Chloride 96 mmol/L (98-107) L 04/13/22 12:52 Carbon Dioxide 29 mmol/L (21-32) 04/13/22 12:52 Anion Gap 10.2 mEq/L (5.0-15.0) 04/13/22 12:52 BUN 14 mg/dL (7-18) 04/13/22 12:52 Creatinine 0.93 mg/dL (0.55-1.3) 04/13/22 12:52 Est GFR (CKD-EPI) 67 ml/min (=/>90) L 04/13/22 12:52 Glucose 176 mg/dL (74-106) H 04/13/22 12:52 POC Glucose 178 mg/dL (65-120) H 04/13/22 12:29 Lactic Acid 1.3 mmol/L (0.4-2.0) 04/13/22 12:56 Calcium 8.8 mg/dL (8.5-10.1) 04/13/22 12:52 Magnesium 1.5 mg/dL (1.8-2.4) L 04/13/22 12:52 Total Bilirubin 2.0 mg/dL (0.2-1.0) H 04/13/22 12:52 Direct Bilirubin 0.6 mg/dL (0-0.2) H 04/13/22 12:52 AST 77 U/L (15-37) H 04/13/22 12:52 ALT 63 U/L (12-78) 04/13/22 12:52 Alkaline Phosphatase 104 U/L (45-117) 04/13/22 12:52 Creatine Kinase 42 U/L (26-192) 04/13/22 12:52 CK-MB (CK-2) < 1.0 ng/mL (1.0-3.6) L 04/13/22 12:52 Serum Total Protein 7.4 g/dL (6.4-8.2) 04/13/22 12:52 Albumin 3.0 g/dL (3.4-5.0) L 04/13/22 12:52 Globulin 4.4 g/dL (2.3-3.5) H 04/13/22 12:52 Albumin/Globulin Ratio 0.7 (1.1-1.8) L 04/13/22 12:52 Lipase 64 U/L (73-393) L 04/13/22 12:52 Urine pH 5.5 (5.0-7.0) 04/13/22 13:58 Ur Specific [place] >=1.030 (1.005-1.030) 04/13/22 13:58 Glucose (UA)(Auto) Negative (Negative) 04/13/22 13:58 Urine Ketones Negative (Negative) 04/13/22 13:58 Urine Blood Negative (Negative) 04/13/22 13:58 Urine Nitrite Positive (Negative) H 04/13/22 13:58 Ur Leukocyte Esterase Negative (Negative) 04/13/22 13:58 Urine RBC <5 /HPF (NONE SEEN) 04/13/22 13:38 Urine WBC 5-10 /HPF (<5) H 04/13/22 13:38 Ur Squamous Epith Cells 5-10 /HPF (NONE SEEN) H 04/13/22 13:38 Urine Bacteria <20 /HPF (<20) 04/13/22 13:38 Urine Mucus 1+ /HPF (NONE SEEN) 04/13/22 13:38 Urine Culture Reflexed Reflexed 04/13/22 13:38 Urine Total Protein 2+ (Negative) H 04/13/22 13:58 SARS-CoV-2 Rap RNA(RT-PCR) Negative (NEGATIVE) 04/13/22 13:01 Assessment And Plan - Plan Physical exam: General: Alert, In no apparent distress, Obese HEENT: Atraumatic Neck: Supple, 2+ carotid pulse no bruit Respiratory: Clear to auscultation bilaterally, Normal air movement Cardiovascular: Irregular heart rate/rhythm Gastrointestinal: Tenderness to mid epigastric area) Musculoskeletal: No clubbing, No swelling Integumentary: No rashes, No breakdown, No significant lesion. Conclusions/Impression: Antibiotics Vancomycin: 04/16current Levaquin: 04/14current Flagyl: 04/14current Assessment/plan Strep bacteremia Blood cultures obtained on 04/12 grew strep anginosus in 4/4 bottles. Repeat blood cultures obtained on 04/15 showed no growth. Source of infection remains unclear, panCT showed 2 masslike lesions in the left lobe of the liver. MRI showed 2 large masses with atypical enhancement pattern concerning for neoplasm versus infection versus parasitic infection. Liver biopsy via ultrasound performed on 04/19, no fluid aspirated. Of note patient had ankle joint infection requiring surgery in January of this year. CT of left ankle showed no signs of acute infection, did show diffuse edema in the subcutaneous tissue. Likely sequela of surgery. Recommend continuing vancomycin at this time. -Patient refused PICC line -TTE negative for acute vegetation, plan for transfer for MESFIN Urinary tract infection Urine culture growing E. coli. Recommend continuing Levaquin at this time. Patient's QTC is 495. Patient has penicillin allergy, states she swells all over. Acute diarrhea C. difficile/stool culture pending -E. histolytica serum antigen pending Continue isolation precautions -Continue probiotic Atrial fibrillation Medical management per primary team Leukocytosis -Continue to trend, patient afebrile. Plan of care discussed with Dr. Moser Thank you for consultation
--- NOTE | 2022-04-20 15:33 | P.DS ---
Admission Date: 04/13/22 Discharge Date: 04/20/22 Disposition: TRANSFER TO [facility] Discharge Condition: FAIR Reason for Admission: Generalized weakness Consultations: GI - Dr. Andino ID - Dr. Moser Brief History of Present Illness: HPI on admission: 71yo F, PMH: Afib, HTN, breast cancer s/p mastectomy Presented to the ED due to generalized weakness. According to report patient had been sick for about 5 days with generalized weakness, loss of appetite and reduced oral intake. She had a fever at home today and her blood pressure noted to be very high with systolic in the 200s at home. Patient was brought to the emergency department where a systolic blood pressure of 90 was recorded. Temperature 99 and pulse rate of 60. It is unknown whether family members tried to treat the blood pressure before the ED presentation. Chest x-ray done in the emergency department showed improved but not completely resolved opacities in the lung bases. Chest x-ray compared to a previous one taken in January of this year. UA shows mild evidence of UTI. Patient is admitted for further management. Hospital Course: Problem List Sepsis secondary to UTI (E.coli), Strep anginosus bacteremia Acute gastroenteritis Hypotension with h/o hypertension elevated LFTs masslike liver lesions x2, new finding atrial fibrillation/flutter; chronic generalized weakness Patient was empirically treated with vancomycin, flagyl, and levaquin. (patient with penicillin allergy) Urine culture: e.coli, sensitive to levaquin. Blood culture (04/12): strep anginosus in 4/4 bottles. Repeat blood culture (04/15) was negative. Infectious disease was consulted. Source of strep anginosus remains unclear. CT chest/abd/pelvis on admission notable for 2 new masslike lesions in the left lobe of liver (5cm and 4.7cm). MRI was ordered but delayed due to patient's anxiety / difficulty taking deep breaths as needed. MRI was able to be performed on 04/18: 6.5cm and 6.7cm mass like lesions, inflammatory/infectios vs neoplasm. Alkphos slowly trended up. GI was consulted. Liver biopsy performed on 04/19 without complications. No aspirate obtained, 3 core biopsies performed, sent for culture and path. gram stain negative for bacteria, no leukocytes. no growth x 24hrs. Path is pending. CA 19, AFP, hepatitis panel, e. histolytica Ab pending Patient's diarrhea was labile throughout hospitalization. Overall with some mild improvement, still loose, but less frequent. C.diff negative, stool culture negative. Ova and parasites pending. TTE: poor windows, no definite evidence of vegetation. Patient presented with leukocytosis of 20k, improved to 15k, and remained at 15k for several days, down to 13k on 04/20. She remained afebrile throughout the hospitalization. Hospitalization complicated by lower extremity edema and shortness of breath. Developed few days after patient received sepsis bolus and with decreased PO intake / hypoalbuminemia. Her blood pressure remained borderline low with systolics ~95-105. She was started on 20mg IV lasix as BP allowed, and had slow improvement. Blood pressure was noted to be in normal range to high overnight 04/19-04/20 for first time in hospitalization. last c-scope ~ 7 yrs ago, no polyps /suspicious lesions, +diverticulosis; no GI cancer history, no family history except maternal great grandmother. Patient was treated in 01/2022 for septic left ankle. At that time, blood and synovial fluid cultures were negative. She completed 2 week empiric treatment with IV vancomycin. She did not have any pain / erythema of her left ankle. A CT was done and only noted edema of surrounding soft tissue. GI and ID recommended transfer to tertiary care center due to need for MESFIN, prolonged leukocytosis, rising CRP, and liver lesions. Transfer to tertiary care center was initiated on 04/19 Patient was accepted to [facility] on 04/20. Vital Signs/Physical Exam: Temp Pulse Resp BP Pulse Ox 97.9 F 74 16 139/72 93 04/20/22 12:25 04/20/22 12:25 04/20/22 12:25 04/20/22 12:25 04/20/22 12:25 General: Alert, Oriented x3 HEENT: EOMI, Sclerae nonicteric Respiratory: Other (mild bibasilar crackles, shallow respirations on 2L NC) Cardiovascular: Edema (2+ bilateral lower extremity edema to knees), Irregular heart rate/rhythm (rate controlled afib) Gastrointestinal: Other (soft, moderate tenderness in epigastrium / RUQ) Musculoskeletal: No contractures, No erythema Integumentary: No rashes, No significant lesion Neurological: Normal speech, Normal affect Laboratory Data at Discharge: WBC 13.1 K/uL (4.3-10.9) H D 04/20/22 06:32 Hgb 12.5 g/dL (12.0-15.0) 04/20/22 06:32 Hct 37.8 % (36.0-45.0) 04/20/22 06:32 Plt Count 357 K/uL (152-406) 04/20/22 06:32 PT 19.3 SECONDS (9.5-12.5) H 04/19/22 08:40 INR 1.73 04/19/22 08:40 APTT 31.7 SECONDS (24.3-36.9) 04/13/22 12:52 Sodium 142 mmol/L (136-145) 04/20/22 06:32 Potassium 3.2 mmol/L (3.5-5.1) L 04/20/22 06:32 BUN 10 mg/dL (7-18) 04/20/22 06:32 Creatinine 0.66 mg/dL (0.55-1.3) 04/20/22 06:32 Glucose 114 mg/dL (74-106) H 04/20/22 06:32 Phosphorus 2.4 mg/dL (2.5-4.9) L 04/14/22 03:06 Magnesium 1.7 mg/dL (1.8-2.4) L 04/20/22 06:32 Total Bilirubin 0.4 mg/dL (0.2-1.0) 04/20/22 06:32 AST 47 U/L (15-37) H 04/20/22 06:32 ALT 32 U/L (12-78) 04/20/22 06:32 Alkaline Phosphatase 193 U/L (45-117) H 04/20/22 06:32 Triglycerides 96 mg/dL (<150) 04/14/22 03:06 Cholesterol 121 mg/dL (<200) 04/14/22 03:06 HDL Cholesterol 39 mg/dL (40-60) L 04/14/22 03:06 Cholesterol/HDL Ratio 3.10 04/14/22 03:06 Lipase 110 U/L (73-393) 04/19/22 16:58 Home Medications: Amiodarone HCl [Cordarone*] 200 mg PO DAILY 01/27/22 Carvedilol [Coreg] 12.5 mg PO DAILY 01/27/22 Clopidogrel Bisulfate [Plavix*] 75 mg PO DAILY 01/27/22 Donepezil HCl [Aricept] 10 mg PO BEDTIME 01/27/22 Irbesartan/Hydrochlorothiazide [Avalide 300-12.5 mg Tablet] 1 each PO DAILY 01/27/22 Followup: NONE,NONE [Primary Care Provider] - Time spent managing pt's care (in minutes): 45
[2022-04-20 16:02] VITALS: BP 171/77; TEMP 97.4
[2022-04-20] MEDS: Levofloxacin 750mg IV 750 MG/150 ML BAG IV SCH (16:21)
[2022-04-20] MEDS: DONEPEZIL HCL 5 MG TAB PO SCH (20:19)
[2022-04-20] MEDS ORDERED: ENSURE CLEAR 200 ML CAN PO SCH (21:00)
[2022-04-20] MEDS ORDERED: Banana Flakes/T-Galactooligos 1 Dose Packet PO SCH (21:00)
[2022-04-20 21:06] VITALS: O2SAT 98
[2022-04-20] MEDS ORDERED: HYDRALAZINE HCL 20 MG/ML VIAL IV ONE (21:15)
[2022-05-01 14:01] LABS: Alpha Fetoprotein-Tumor Marker 5.2 ng/mL
== END 2022-04-20 21:40 | disposition short-term general hospital (02) | DRG 871 ==
LOC: ER 11:48 → ERHOLD 17:01 → 2ND 17:32
PROVIDERS: ADMIT Internal Medicine; ATTEND Internal Medicine
PROC: 0FB23ZX Excision of Left Lobe Liver, Percutaneous Approach, Diagnostic (ICD-10-PCS; principal; 2022-04-19)
DX: A40.8 Other streptococcal sepsis (principal); J18.9 Pneumonia, unspecified organism; R65.21 Severe sepsis with septic shock; N39.0 Urinary tract infection, site not specified; I48.92 Unspecified atrial flutter; I48.91 Unspecified atrial fibrillation; I10 Essential (primary) hypertension; K52.9 Noninfective gastroenteritis and colitis, unspecified; R94.5 Abnormal results of liver function studies; I95.2 Hypotension due to drugs; T46.5X5A Adverse effect of other antihypertensive drugs, initial encounter; Y92.230 Patient room in hospital as the place of occurrence of the external cause; B96.20 Unspecified Escherichia coli [E. coli] as the cause of diseases classified elsewhere; K76.9 Liver disease, unspecified; E88.09 Other disorders of plasma-protein metabolism, not elsewhere classified; Z20.822 Contact with and (suspected) exposure to COVID-19; Z88.0 Allergy status to penicillin; Z88.6 Allergy status to analgesic agent; Z85.3 Personal history of malignant neoplasm of breast; Z90.10 Acquired absence of unspecified breast and nipple
CPT/HCPCS: 36415; 47000; 71045; 71260; 73700; 74177; 74183; 80048; 80053; 80061; 80076; 80202; 81003; 81015; 82105; 82533; 82550; 82553; 82947; 83605; 83631; 83690; 83735; 84100; 84132; 84439; 84443; 85025; 85027; 85610; 85730; 86140; 86705; 86709; 86803; 87040; 87045; 87046; 87070; 87077; 87086; 87088; 87176; 87177; 87186; 87205; 87209; 87324; 87340; 87449; 87804; 88307; 93005; 93306; 96361; 96365; 96367; 97110; 97116; 97161; 97530; 99285; A9577; J0360; J1650; J1940; J3370; J3475; J3490; J7030; J7040; J7050; P9045; Q9967; U0003